=== PATIENT | female | born 1945 | race African-American/Black ===

== ENCOUNTER 2020-09-26 22:46 | Inpatient (IN) ==
[2020-09-26] MEDS ORDERED: ASPIRIN 325 MG TABLET PO STA (23:21)
[2020-09-26] MEDS ORDERED: ONDANSETRON 4 MG/2 ML VIAL IV STA (23:21)
[2020-09-26] MEDS ORDERED: SODIUM CHLORIDE 0.9% 1,000 ML IV STA (23:21)
[2020-09-26 23:28] LABS: Basophils % 0.2 % (0.0-0.8); Eosinophils % 0.1 % (0.00-10.9); Hemoglobin 12.6 GM/DL (12.0-16.0); Immature Granulocytes % 0.5 %; Immature Granulocytes Absolute 0.09 #; Lymphocytes # 0.7 10*3/uL (1.4-4.0); Lymphocytes % 3.9 % (21.3-54.2); Mean Corpuscular HGB Conc 32.3 GM/DL (32-36); Mean Corpuscular Volume 92.6 FL (87-102); Mean Platelet Volume 9.7 FL (9.6-12.0); Monocytes % 3.2 % (1.7-12.7); Neutrophils % 92.1 % (38.7-73.9); Platelet Count 312 T/CUMM (130-400); Red Blood Count 4.21 MC/CUMM (3.8-5.5); Red Cell Distribution Width 15.2 % (9.3-17.3); White Blood Count 17.5 T/CUMM (4-12)
[2020-09-26 23:48] LABS: Bilirubin,Total 0.8 MG/DL (0.2-1.0); Calcium 8.5 MG/DL (8.5-10.1); Osmolality,Calculated 278.2 MOS/KG (273-304); Potassium 3.5 MMOL/L (3.5-5.1); Total Protein 9.4 G/DL (6.4-8.2)
[2020-09-26 23:49] LABS: PT Patient Result 11.1 SECS (10.5-12.0); Partial Thromboplastin Time 24.1 SECS (23.9-33.8)
[2020-09-26 23:50] LABS: Lymphocytes 3 % (20-55); Platelet Estimate Normal; Segmented Neutrophils 96 % (50-85); Total Cells Counted 100
[2020-09-26 23:53] LABS: ABG Base Excess -1.5 MMOL/L (-2.5-2.5); ABG HCO3 20.1 MMOL/L (20-26); ABG Oxygen Saturation 98.4 % (95-100); ABG PCO2 25.4 MM HG (35-48); ABG PH 7.516 (7.35-7.45); ABG PO2 131.8 MM HG (80-95); ABG TCO2 20.9 MMOL/L (23-27)
[2020-09-27] MEDS ORDERED: ENOXAPARIN 30 MG/0.3 ML SYRINGE SUBCUT STA (00:08)
[2020-09-27] MEDS ORDERED: PIPERACILLIN/TAZOBACTAM 3,375 MG in SODIUM CHLORIDE 0.9% 100 ML IV STA (00:09)
[2020-09-27] MEDS ORDERED: VANCOMYCIN INJ 1,000 MG in SODIUM CHLORIDE 0.9% 250 ML IV STA (00:10)
[2020-09-27] MEDS ORDERED: ENOXAPARIN 60 MG/0.6 ML SYRINGE ONE (00:16)
[2020-09-27] MEDS ORDERED: SODIUM CHLORIDE 0.9% 100 ML IV ONE (00:18)
[2020-09-27] MEDS ORDERED: PIPERACILLIN/TAZOBACTAM 3,375 MG VIAL IV ONE (00:18)
[2020-09-27] MEDS ORDERED: DOCUSATE SODIUM 100 MG CAPSULE PO PRN (00:21)
[2020-09-27] MEDS ORDERED: SODIUM CHLORIDE 0.9% 1,000 ML IV SCH (00:30)
[2020-09-27] MEDS: PIPERACILLIN/TAZOBACTAM 3,375 MG in SODIUM CHLORIDE 0.9% 100 ML IV SCH ×3 (07:45→23:25)
[2020-09-27 12:10] LABS: Bacteria,Urine Occasional /HPF (Few); Bilirubin,Urine Negative (Negative); Blood, Urine Negative (Negative); Glucose,Urine (UA) Negative (Negative); Ketones,Urine Negative (Negative); Mucus,Urine Occasional /LPF (Occasional); Nitrite,Urine Negative (Negative); Protein,Urine Negative; RBC,Urine 1 /HPF (0-4); Squamous Epithelial Cell,Urine Occasional /HPF (0-10); Urine Appearance CLEAR (Clear); Urine Color Yellow (Yellow); Urine Specific Gravity 1.035 (1.001-1.035); Urine Urobilinogen < 2.0 EU/DL (0.2-1.0)
[2020-09-27] MEDS: ENOXAPARIN 60 MG/0.6 ML SYRINGE SUBCUT SCH ×2 (12:30→23:25)
[2020-09-27] MEDS ORDERED: FUROSEMIDE 40 MG/4 ML VIAL IV ONE (17:00)
[2020-09-27] MEDS: methylPREDNISolone SOD SUC 40 MG/1 ML VIAL IV SCH ×2 (17:17→23:24)
[2020-09-27] MEDS ORDERED: VANCOMYCIN INJ 1,000 MG in SODIUM CHLORIDE 0.9% 250 ML IV SCH (21:00)
[2020-09-28 04:37] LABS: Basophils % 0.1 % (0.0-0.8); Hematocrit 34.1 VOL% (35.7-47.0); Hemoglobin 10.9 GM/DL (12.0-16.0); Immature Granulocytes % 0.4 %; Immature Granulocytes Absolute 0.06 #; Lymphocytes # 0.7 10*3/uL (1.4-4.0); Lymphocytes % 5.2 % (21.3-54.2); Mean Corpuscular Volume 94.5 FL (87-102); Mean Platelet Volume 9.5 FL (9.6-12.0); Monocytes % 3.5 % (1.7-12.7); Neutrophils % 90.8 % (38.7-73.9); Platelet Count 268 T/CUMM (130-400); Red Blood Count 3.61 MC/CUMM (3.8-5.5); Red Cell Distribution Width 14.7 % (9.3-17.3); White Blood Count 13.5 T/CUMM (4-12)
[2020-09-28] MEDS: methylPREDNISolone SOD SUC 40 MG/1 ML VIAL IV SCH ×3 (04:51→20:21)
[2020-09-28 04:59] LABS: Albumin 2.5 G/DL (3.4-5.0); Bilirubin,Total 0.8 MG/DL (0.2-1.0); Calcium 8.3 MG/DL (8.5-10.1); Hypochromasia 1+; Lymphocytes 3 % (20-55); Microcytosis 1+; Osmolality,Calculated 280.5 MOS/KG (273-304); Platelet Estimate Adequate; Potassium 3.3 MMOL/L (3.5-5.1); Segmented Neutrophils 91 % (50-85); Total Cells Counted 100
[2020-09-28] MEDS: ENOXAPARIN 60 MG/0.6 ML SYRINGE SUBCUT SCH ×2 (09:16→20:21)
[2020-09-28] MEDS: PIPERACILLIN/TAZOBACTAM 3,375 MG in SODIUM CHLORIDE 0.9% 100 ML IV SCH ×2 (09:16→16:19)
[2020-09-28] MEDS: POTASSIUM CHLORIDE 20 MEQ TABLET PO PRN ×3 (10:01→18:42)
[2020-09-28] MEDS ORDERED: FUROSEMIDE 40 MG/4 ML VIAL IV ONE (10:31)
[2020-09-29] MEDS: PIPERACILLIN/TAZOBACTAM 3,375 MG in SODIUM CHLORIDE 0.9% 100 ML IV SCH ×3 (01:29→15:55)
[2020-09-29 05:48] LABS: Basophils % 0.2 % (0.0-0.8); Hematocrit 34.5 VOL% (35.7-47.0); Hemoglobin 11.6 GM/DL (12.0-16.0); Immature Granulocytes % 0.7 %; Immature Granulocytes Absolute 0.13 #; Lymphocytes # 0.6 10*3/uL (1.4-4.0); Lymphocytes % 2.9 % (21.3-54.2); Mean Corpuscular HGB Conc 33.6 GM/DL (32-36); Mean Corpuscular Volume 91.3 FL (87-102); Mean Platelet Volume 10.3 FL (9.6-12.0); Neutrophils % 92.2 % (38.7-73.9); Platelet Count 292 T/CUMM (130-400); Red Blood Count 3.78 MC/CUMM (3.8-5.5)
[2020-09-29 06:17] LABS: Hypochromasia Slight; Lymphocytes 1 % (20-55); Microcytosis Slight; Platelet Estimate Adequate; Segmented Neutrophils 96 % (50-85); Total Cells Counted 100
[2020-09-29 06:20] LABS: Albumin 2.5 G/DL (3.4-5.0); Bilirubin,Total 0.6 MG/DL (0.2-1.0); Calcium 9.1 MG/DL (8.5-10.1); Osmolality,Calculated 290.3 MOS/KG (273-304); Potassium 3.8 MMOL/L (3.5-5.1); Total Protein 8.6 G/DL (6.4-8.2)
[2020-09-29] MEDS: ENOXAPARIN 60 MG/0.6 ML SYRINGE SUBCUT SCH (08:05)
[2020-09-29] MEDS: methylPREDNISolone SOD SUC 40 MG/1 ML VIAL IV SCH ×2 (08:06→20:28)
[2020-09-29] MEDS ORDERED: FUROSEMIDE 40 MG/4 ML VIAL IV ONE (08:49)
[2020-09-29] MEDS: ACETAMINOPHEN 325 MG TABLET PO PRN (11:16)
[2020-09-29] MEDS: ONDANSETRON 4 MG/2 ML VIAL IV PRN (11:17)
[2020-09-29] MEDS: ALBUTEROL 2.5 MG/3 ML NEB RESP TX PRN ×2 (20:54)
[2020-09-30] MEDS ORDERED: methylPREDNISolone SOD SUC 125 MG/2 ML VIAL IV ONE (01:41)
[2020-09-30] MEDS ORDERED: methylPREDNISolone SOD SUC 125 MG/2 ML VIAL ONE (01:43)
[2020-09-30] MEDS: ALBUTEROL 2.5 MG/3 ML NEB RESP TX PRN ×2 (02:27→13:44)
[2020-09-30] MEDS: PIPERACILLIN/TAZOBACTAM 3,375 MG in SODIUM CHLORIDE 0.9% 100 ML IV SCH ×3 (02:30→16:49)
[2020-09-30] MEDS: ALBUTEROL/IPRATROPIUM 3 ML NEB RESP TX SCH ×5 (03:27→18:18)
[2020-09-30 03:32] LABS: Basophils % 0.1 % (0.0-0.8); Hematocrit 36.8 VOL% (35.7-47.0); Hemoglobin 11.9 GM/DL (12.0-16.0); Immature Granulocytes % 0.8 %; Immature Granulocytes Absolute 0.23 #; Lymphocytes # 0.5 10*3/uL (1.4-4.0); Lymphocytes % 1.7 % (21.3-54.2); Mean Corpuscular HGB Conc 32.3 GM/DL (32-36); Mean Corpuscular Volume 93.2 FL (87-102); Mean Platelet Volume 10.4 FL (9.6-12.0); Monocytes % 4.1 % (1.7-12.7); NRBC # 0.02 10*3/uL; Neutrophils % 93.3 % (38.7-73.9); Platelet Count 346 T/CUMM (130-400); Red Blood Count 3.95 MC/CUMM (3.8-5.5); Red Cell Distribution Width 15.5 % (9.3-17.3); White Blood Count 27.1 T/CUMM (4-12)
[2020-09-30 03:52] LABS: Albumin 2.7 G/DL (3.4-5.0); Bilirubin,Total 0.5 MG/DL (0.2-1.0); Calcium 9.1 MG/DL (8.5-10.1); Osmolality,Calculated 296.3 MOS/KG (273-304); Potassium 3.4 MMOL/L (3.5-5.1); Total Protein 8.9 G/DL (6.4-8.2)
[2020-09-30 04:12] LABS: Lymphocytes 3 % (20-55); Platelet Estimate Adequate; Segmented Neutrophils 95 % (50-85); Total Cells Counted 100
[2020-09-30 04:13] LABS: Hypochromasia 1+; Microcytosis 1+
[2020-09-30] MEDS: POTASSIUM CHLORIDE 20 MEQ TABLET PO PRN ×2 (04:38→06:06)
[2020-09-30 07:12] LABS: ABG Base Excess 1.4 MMOL/L (-2.5-2.5); ABG HCO3 25.6 MMOL/L (20-26); ABG PCO2 39.1 MM HG (35-48); ABG PH 7.434 (7.35-7.45); ABG TCO2 26.8 MMOL/L (23-27); Allen Test Positive; Pt O2 Delivery Device Other
[2020-09-30 07:13] LABS: ABG PO2 38.9 MM HG (80-95)
[2020-09-30] MEDS ORDERED: ETOMIDATE 20 MG/10 ML VIAL IV ONE ×2 (07:18→07:34)
[2020-09-30] MEDS ORDERED: SUCCINYLCHOLINE 200 MG/10 ML VIAL ONE (07:19)
[2020-09-30] MEDS ORDERED: SUCCINYLCHOLINE 200 MG/10 ML VIAL IV ONE (07:35)
[2020-09-30] MEDS ORDERED: SODIUM CHLORIDE 0.9% 500 ML IV ONE (07:37)
[2020-09-30] MEDS ORDERED: NOREPINEPHRINE 4 MG/4 ML VIAL IV ONE (07:38)
[2020-09-30] MEDS: NOREPINEPHRINE 8 MG in SODIUM CHLORIDE 0.9% 242 ML IV PRN ×2 (07:40→11:29)
[2020-09-30] MEDS ORDERED: MIDAZOLAM 2 MG/2 ML VIAL IV ONE ×2 (07:48→07:53)
[2020-09-30] MEDS ORDERED: MIDAZOLAM 2 MG/2 ML VIAL ONE (07:49)
[2020-09-30] MEDS ORDERED: fentaNYL INJ 1,250 MCG in SODIUM CHLORIDE 0.9% 225 ML IV PRN (08:03)
[2020-09-30] MEDS: MIDAZOLAM 100 MG in SODIUM CHLORIDE 0.9% 80 ML IV PRN (08:41)
[2020-09-30 08:45] LABS: ABG Base Excess -1.7 MMOL/L (-2.5-2.5); ABG HCO3 22.8 MMOL/L (20-26); ABG Oxygen Saturation 87.2 % (95-100); ABG PCO2 53.2 MM HG (35-48); ABG PH 7.291 (7.35-7.45); ABG PO2 65.9 MM HG (80-95); ABG TCO2 23.3 MMOL/L (23-27)
[2020-09-30] MEDS: methylPREDNISolone SOD SUC 40 MG/1 ML VIAL IV SCH ×3 (08:51→20:48)
[2020-09-30] MEDS: ENOXAPARIN 40 MG/0.4 ML SYRINGE SUBCUT SCH (08:51)
[2020-09-30] MEDS ORDERED: PNEUMOCOCCAL VACCINE (13 VALENT) 0.5 ML SYRINGE IM ONE (09:00)
[2020-09-30 11:34] LABS: ABG Base Excess -3.8 MMOL/L (-2.5-2.5); ABG HCO3 24.8 MMOL/L (20-26); ABG Oxygen Saturation 80.5 % (95-100); ABG PCO2 62.8 MM HG (35-48); ABG PH 7.214 (7.35-7.45); ABG PO2 59.3 MM HG (80-95); ABG TCO2 26.7 MMOL/L (23-27)
[2020-09-30 11:35] LABS: Allen Test Positive; Pt O2 Delivery Device Ventilator
[2020-09-30] MEDS ORDERED: DEXTROSE 50% 25 GM/50 ML VIAL IV PRN (11:53)
[2020-09-30] MEDS ORDERED: GLUCAGON 1 MG VIAL IM PRN (11:53)
[2020-09-30] MEDS: CISATRACURIUM 200 MG in SODIUM CHLORIDE 0.9% 180 ML IV PRN ×2 (12:30→19:16)
[2020-09-30 13:36] LABS: Antinuclear Ab, S > 12.0 U
[2020-09-30] MEDS: FUROSEMIDE 40 MG/4 ML VIAL IV SCH (13:59)
[2020-09-30] MEDS: INSULIN REGULAR 100 UNIT/ML SUBCUT SCH ×2 (14:05→18:34)
[2020-09-30] MEDS: NOREPINEPHRINE 16 MG in SODIUM CHLORIDE 0.9% 234 ML IV PRN (15:41)
[2020-09-30] MEDS: fentaNYL INJ 2,500 MCG in SODIUM CHLORIDE 0.9% 75 ML IV PRN (17:42)
[2020-09-30] MEDS: SULFAMETH/TRIMETH INJ 300 MG in DEXTROSE 5% 500 ML IV SCH (17:50)
[2020-09-30] MEDS: BUDESONIDE 0.5 MG/2 ML NEB RESP TX SCH (18:18)
[2020-10-01] MEDS: NOREPINEPHRINE 16 MG in SODIUM CHLORIDE 0.9% 234 ML IV PRN ×2 (00:02→09:12)
[2020-10-01] MEDS: MIDAZOLAM 100 MG in SODIUM CHLORIDE 0.9% 80 ML IV PRN (00:03)
[2020-10-01] MEDS: INSULIN REGULAR 100 UNIT/ML SUBCUT SCH ×4 (00:07→17:55)
[2020-10-01] MEDS: PIPERACILLIN/TAZOBACTAM 3,375 MG in SODIUM CHLORIDE 0.9% 100 ML IV SCH ×3 (00:07→17:01)
[2020-10-01] MEDS: ALBUTEROL/IPRATROPIUM 3 ML NEB RESP TX SCH ×7 (00:40→23:19)
[2020-10-01] MEDS: SULFAMETH/TRIMETH INJ 300 MG in DEXTROSE 5% 500 ML IV SCH ×2 (01:52→13:45)
[2020-10-01] MEDS: CISATRACURIUM 200 MG in SODIUM CHLORIDE 0.9% 180 ML IV PRN ×4 (01:53→23:23)
[2020-10-01] MEDS: methylPREDNISolone SOD SUC 40 MG/1 ML VIAL IV SCH ×4 (03:58→21:38)
[2020-10-01 04:17] LABS: ABG Base Excess -3.5 MMOL/L (-2.5-2.5); ABG HCO3 21.5 MMOL/L (20-26); ABG Oxygen Saturation 99.9 % (95-100); ABG PCO2 55.3 MM HG (35-48); ABG PH 7.252 (7.35-7.45); ABG TCO2 22.4 MMOL/L (23-27); Allen Test Positive; Pt O2 Delivery Device Ventilator
[2020-10-01 04:44] LABS: Basophils % 0.1 % (0.0-0.8); Hematocrit 32.4 VOL% (35.7-47.0); Hemoglobin 10.1 GM/DL (12.0-16.0); Immature Granulocytes % 1.2 %; Immature Granulocytes Absolute 0.33 #; Lymphocytes # 0.6 10*3/uL (1.4-4.0); Lymphocytes % 2.2 % (21.3-54.2); Mean Corpuscular HGB Conc 31.2 GM/DL (32-36); Mean Platelet Volume 10.3 FL (9.6-12.0); Monocytes % 7.5 % (1.7-12.7); Platelet Count 347 T/CUMM (130-400); Red Blood Count 3.34 MC/CUMM (3.8-5.5); White Blood Count 28.2 T/CUMM (4-12)
[2020-10-01 05:02] LABS: Alanine Aminotransferase 24 U/L (13-56); Albumin 2.3 G/DL (3.4-5.0); Alkaline Phosphatase 79 U/L (45-117); Aspartate Amino Transferase 14 U/L (0-37); Bilirubin,Total < 0.39 MG/DL (0.2-1.0); Blood Urea Nitrogen 53 MG/DL (7-18); Calcium 7.9 MG/DL (8.5-10.1); Carbon Dioxide 27 MMOL/L (21-32); Estimated Glom Filtration Rate 29 ML/MIN; Glucose 277 MG/DL (74-106); Osmolality,Calculated 302.4 MOS/KG (273-304); Sodium 140 MMOL/L (136-145); Total Protein 7.5 G/DL (6.4-8.2)
[2020-10-01 05:10] LABS: Anisocytosis 1+; Hypochromasia 1+; Lymphocytes 1 % (20-55); Microcytosis 1+; Segmented Neutrophils 93 % (50-85); Total Cells Counted 100
[2020-10-01 05:11] LABS: Polychromasia Slight
[2020-10-01] MEDS: BUDESONIDE 0.5 MG/2 ML NEB RESP TX SCH ×2 (07:18→20:03)
[2020-10-01] MEDS: FUROSEMIDE 40 MG/4 ML VIAL IV SCH ×2 (09:10→10:03)
[2020-10-01] MEDS: ENOXAPARIN 40 MG/0.4 ML SYRINGE SUBCUT SCH (09:11)
[2020-10-01] MEDS: INSULIN GLARGINE 100 UNIT/ML SUBCUT SCH (09:11)
[2020-10-01] MEDS: fentaNYL INJ 2,500 MCG in SODIUM CHLORIDE 0.9% 75 ML IV PRN ×2 (09:59→10:31)
[2020-10-01 12:27] LABS: ABG Base Excess -0.3 MMOL/L (-2.5-2.5); ABG HCO3 24.2 MMOL/L (20-26); ABG Oxygen Saturation 98.2 % (95-100); ABG PCO2 53.8 MM HG (35-48); ABG PH 7.304 (7.35-7.45); ABG TCO2 24.6 MMOL/L (23-27)
[2020-10-01] MEDS ORDERED: LACTATED RINGERS 500 ML IV ONE (12:40)
[2020-10-02] MEDS: INSULIN REGULAR 100 UNIT/ML SUBCUT SCH ×4 (00:40→17:44)
[2020-10-02] MEDS: PIPERACILLIN/TAZOBACTAM 3,375 MG in SODIUM CHLORIDE 0.9% 100 ML IV SCH ×3 (00:42→16:15)
[2020-10-02] MEDS: SULFAMETH/TRIMETH INJ 300 MG in DEXTROSE 5% 500 ML IV SCH ×2 (01:30→16:06)
[2020-10-02] MEDS: NOREPINEPHRINE 16 MG in SODIUM CHLORIDE 0.9% 234 ML IV PRN (01:54)
[2020-10-02] MEDS: fentaNYL INJ 2,500 MCG in SODIUM CHLORIDE 0.9% 75 ML IV PRN (03:15)
[2020-10-02] MEDS: ALBUTEROL/IPRATROPIUM 3 ML NEB RESP TX SCH ×6 (03:35→23:42)
[2020-10-02] MEDS: methylPREDNISolone SOD SUC 40 MG/1 ML VIAL IV SCH ×4 (04:50→21:08)
[2020-10-02 04:56] LABS: Basophils % 0.1 % (0.0-0.8); Hematocrit 28.5 VOL% (35.7-47.0); Hemoglobin 8.9 GM/DL (12.0-16.0); Immature Granulocytes % 1.2 %; Immature Granulocytes Absolute 0.31 #; Lymphocytes # 0.4 10*3/uL (1.4-4.0); Lymphocytes % 1.5 % (21.3-54.2); Mean Corpuscular HGB Conc 31.2 GM/DL (32-36); Mean Corpuscular Volume 95.6 FL (87-102); Mean Platelet Volume 10.3 FL (9.6-12.0); Monocytes % 5.4 % (1.7-12.7); Neutrophils % 91.8 % (38.7-73.9); Platelet Count 338 T/CUMM (130-400); Red Blood Count 2.98 MC/CUMM (3.8-5.5); Red Cell Distribution Width 14.7 % (9.3-17.3); White Blood Count 25.5 T/CUMM (4-12)
[2020-10-02 04:59] LABS: ABG Base Excess 0.8 MMOL/L (-2.5-2.5); ABG HCO3 25.2 MMOL/L (20-26); ABG Oxygen Saturation 99.4 % (95-100); ABG PCO2 45.7 MM HG (35-48); ABG PH 7.369 (7.35-7.45); ABG TCO2 24.3 MMOL/L (23-27)
[2020-10-02 05:05] LABS: Calcium 8.4 MG/DL (8.5-10.1); Osmolality,Calculated 295.8 MOS/KG (273-304); Potassium 3.9 MMOL/L (3.5-5.1)
[2020-10-02 06:05] LABS: Band Neutrophils 3 % (0-10); Lymphocytes 2 % (20-55); Platelet Estimate Normal; Segmented Neutrophils 90 % (50-85); Total Cells Counted 100
[2020-10-02 06:06] LABS: Anisocytosis 1+; Basophilic Stippling Slight; Macrocytosis Slight
[2020-10-02] MEDS: BUDESONIDE 0.5 MG/2 ML NEB RESP TX SCH ×2 (07:21→19:51)
[2020-10-02] MEDS: ENOXAPARIN 30 MG/0.3 ML SYRINGE SUBCUT SCH (09:00)
[2020-10-02] MEDS: INSULIN GLARGINE 100 UNIT/ML SUBCUT SCH (09:01)
[2020-10-02] MEDS: CISATRACURIUM 200 MG in SODIUM CHLORIDE 0.9% 180 ML IV PRN (09:38)
[2020-10-02] MEDS ORDERED: INSULIN GLARGINE 100 UNIT/ML SUBCUT ONE (09:42)
[2020-10-02] MEDS: MIDAZOLAM 100 MG in SODIUM CHLORIDE 0.9% 80 ML IV PRN (20:03)
[2020-10-03] MEDS: INSULIN REGULAR 100 UNIT/ML SUBCUT SCH ×4 (00:08→18:26)
[2020-10-03] MEDS: PIPERACILLIN/TAZOBACTAM 3,375 MG in SODIUM CHLORIDE 0.9% 100 ML IV SCH ×3 (00:15→17:25)
[2020-10-03] MEDS: SULFAMETH/TRIMETH INJ 300 MG in DEXTROSE 5% 500 ML IV SCH ×2 (01:14→12:25)
[2020-10-03] MEDS: methylPREDNISolone SOD SUC 40 MG/1 ML VIAL IV SCH ×4 (03:12→21:25)
[2020-10-03] MEDS: ALBUTEROL/IPRATROPIUM 3 ML NEB RESP TX SCH ×6 (03:41→23:49)
[2020-10-03 04:32] LABS: ABG Base Excess 1.8 MMOL/L (-2.5-2.5); ABG Oxygen Saturation 94.8 % (95-100); ABG PCO2 42.1 MM HG (35-48); ABG PH 7.409 (7.35-7.45); ABG PO2 75.7 MM HG (80-95); ABG TCO2 24.2 MMOL/L (23-27); Allen Test Positive; Pt O2 Delivery Device Ventilator
[2020-10-03 04:47] LABS: Basophils % 0.1 % (0.0-0.8); Eosinophils # 0.1 10*3/uL (0.0-0.87); Eosinophils % 0.3 % (0.00-10.9); Hematocrit 26.7 VOL% (35.7-47.0); Hemoglobin 8.6 GM/DL (12.0-16.0); Immature Granulocytes % 1.4 %; Lymphocytes # 0.5 10*3/uL (1.4-4.0); Lymphocytes % 2.3 % (21.3-54.2); Mean Corpuscular HGB Conc 32.2 GM/DL (32-36); Mean Corpuscular Volume 93.4 FL (87-102); Mean Platelet Volume 10.6 FL (9.6-12.0); Monocytes % 4.2 % (1.7-12.7); NRBC # 0.02 10*3/uL; Neutrophils % 91.7 % (38.7-73.9); Platelet Count 317 T/CUMM (130-400); Red Blood Count 2.86 MC/CUMM (3.8-5.5); Red Cell Distribution Width 15.1 % (9.3-17.3)
[2020-10-03 05:29] LABS: Calcium 8.6 MG/DL (8.5-10.1); Osmolality,Calculated 287.2 MOS/KG (273-304); Potassium 4.5 MMOL/L (3.5-5.1)
[2020-10-03] MEDS: BUDESONIDE 0.5 MG/2 ML NEB RESP TX SCH ×2 (07:22→19:56)
[2020-10-03 07:36] LABS: Lymphocytes 2 % (20-55); Microcytosis Slight; Platelet Estimate Increased; Polychromasia Slight; Segmented Neutrophils 97 % (50-85); Total Cells Counted 100
[2020-10-03] MEDS: ENOXAPARIN 30 MG/0.3 ML SYRINGE SUBCUT SCH (09:53)
[2020-10-03] MEDS: INSULIN GLARGINE 100 UNIT/ML SUBCUT SCH (09:54)
[2020-10-03] MEDS: fentaNYL INJ 2,500 MCG in SODIUM CHLORIDE 0.9% 75 ML IV PRN (14:55)
[2020-10-04] MEDS: PIPERACILLIN/TAZOBACTAM 3,375 MG in SODIUM CHLORIDE 0.9% 100 ML IV SCH ×3 (00:10→16:50)
[2020-10-04] MEDS: INSULIN REGULAR 100 UNIT/ML SUBCUT SCH ×4 (00:15→17:22)
[2020-10-04] MEDS: SULFAMETH/TRIMETH INJ 300 MG in DEXTROSE 5% 500 ML IV SCH ×2 (01:13→13:27)
[2020-10-04] MEDS: methylPREDNISolone SOD SUC 40 MG/1 ML VIAL IV SCH ×4 (03:08→20:48)
[2020-10-04] MEDS: ALBUTEROL/IPRATROPIUM 3 ML NEB RESP TX SCH ×5 (04:37→18:25)
[2020-10-04 04:42] LABS: ABG Base Excess 5.4 MMOL/L (-2.5-2.5); ABG HCO3 28.4 MMOL/L (20-26); ABG PCO2 35.2 MM HG (35-48); ABG PH 7.525 (7.35-7.45); ABG PO2 79.8 MM HG (80-95); ABG TCO2 29.5 MMOL/L (23-27); Allen Test Positive; Pt O2 Delivery Device Ventilator
[2020-10-04 04:44] LABS: Basophils % 0.1 % (0.0-0.8); Eosinophils # 0.1 10*3/uL (0.0-0.87); Eosinophils % 0.8 % (0.00-10.9); Hematocrit 25.4 VOL% (35.7-47.0); Hemoglobin 8.1 GM/DL (12.0-16.0); Immature Granulocytes Absolute 0.55 #; Lymphocytes # 0.5 10*3/uL (1.4-4.0); Lymphocytes % 2.9 % (21.3-54.2); Mean Corpuscular HGB Conc 31.9 GM/DL (32-36); Mean Corpuscular Volume 94.1 FL (87-102); Mean Platelet Volume 10.4 FL (9.6-12.0); NRBC # 0.03 10*3/uL; Neutrophils % 88.2 % (38.7-73.9); Platelet Count 322 T/CUMM (130-400); Red Cell Distribution Width 15.6 % (9.3-17.3); White Blood Count 18.1 T/CUMM (4-12)
[2020-10-04 05:05] LABS: Eosinophils 1 % (0-10); Lymphocytes 6 % (20-55); Segmented Neutrophils 89 % (50-85); Total Cells Counted 100
[2020-10-04 05:06] LABS: Hypochromasia 1+; Microcytosis 1+
[2020-10-04 05:07] LABS: Calcium 8.2 MG/DL (8.5-10.1); Osmolality,Calculated 282.1 MOS/KG (273-304); Potassium 4.7 MMOL/L (3.5-5.1)
[2020-10-04] MEDS: MIDAZOLAM 100 MG in SODIUM CHLORIDE 0.9% 80 ML IV PRN (06:47)
[2020-10-04] MEDS: BUDESONIDE 0.5 MG/2 ML NEB RESP TX SCH ×2 (07:34→18:25)
[2020-10-04 07:56] LABS: Pneumocystis jiroveci Result Negative (Negative); Pneumocystis jiroveci Source SPUTUM
[2020-10-04] MEDS: INSULIN GLARGINE 100 UNIT/ML SUBCUT SCH (09:30)
[2020-10-04] MEDS: ENOXAPARIN 30 MG/0.3 ML SYRINGE SUBCUT SCH (09:51)
[2020-10-04] MEDS: METOCLOPRAMIDE 10 MG/2 ML VIAL IV SCH (17:22)
[2020-10-04] MEDS: fentaNYL INJ 2,500 MCG in SODIUM CHLORIDE 0.9% 75 ML IV PRN (23:40)
[2020-10-05] MEDS: METOCLOPRAMIDE 10 MG/2 ML VIAL IV SCH ×4 (00:09→18:40)
[2020-10-05] MEDS: INSULIN REGULAR 100 UNIT/ML SUBCUT SCH ×4 (00:09→18:35)
[2020-10-05] MEDS: ALBUTEROL/IPRATROPIUM 3 ML NEB RESP TX SCH ×5 (00:34→18:58)
[2020-10-05] MEDS: SULFAMETH/TRIMETH INJ 300 MG in DEXTROSE 5% 500 ML IV SCH (00:49)
[2020-10-05 04:14] LABS: ABG Base Excess 4.5 MMOL/L (-2.5-2.5); ABG HCO3 28.4 MMOL/L (20-26); ABG Oxygen Saturation 98.1 % (95-100); ABG PCO2 38.8 MM HG (35-48); ABG PH 7.471 (7.35-7.45); ABG TCO2 25.6 MMOL/L (23-27)
[2020-10-05] MEDS: methylPREDNISolone SOD SUC 40 MG/1 ML VIAL IV SCH ×4 (04:29→20:54)
[2020-10-05 04:41] LABS: Basophils % 0.1 % (0.0-0.8); Eosinophils # 0.2 10*3/uL (0.0-0.87); Eosinophils % 0.9 % (0.00-10.9); Hematocrit 29.6 VOL% (35.7-47.0); Hemoglobin 9.7 GM/DL (12.0-16.0); Immature Granulocytes % 4.5 %; Immature Granulocytes Absolute 0.97 #; Lymphocytes # 0.7 10*3/uL (1.4-4.0); Lymphocytes % 3.4 % (21.3-54.2); Mean Corpuscular HGB Conc 32.8 GM/DL (32-36); Mean Corpuscular Volume 91.9 FL (87-102); Mean Platelet Volume 10.5 FL (9.6-12.0); Monocytes % 6.9 % (1.7-12.7); NRBC # 0.05 10*3/uL; Neutrophils % 84.2 % (38.7-73.9); Platelet Count 368 T/CUMM (130-400); Red Blood Count 3.22 MC/CUMM (3.8-5.5); Red Cell Distribution Width 15.6 % (9.3-17.3); White Blood Count 21.5 T/CUMM (4-12)
[2020-10-05 04:54] LABS: Calcium 8.6 MG/DL (8.5-10.1); Osmolality,Calculated 279.4 MOS/KG (273-304); Potassium 4.4 MMOL/L (3.5-5.1)
[2020-10-05 05:01] LABS: Band Neutrophils 1 % (0-10); Eosinophils 1 % (0-10); Hypochromasia 1+; Lymphocytes 4 % (20-55); Metamyelocytes 1 %; Segmented Neutrophils 86 % (50-85); Total Cells Counted 100
[2020-10-05 05:02] LABS: Microcytosis 1+; Platelet Estimate Normal; Polychromasia Slight
[2020-10-05] MEDS: BUDESONIDE 0.5 MG/2 ML NEB RESP TX SCH ×2 (06:57→19:00)
[2020-10-05] MEDS: INSULIN GLARGINE 100 UNIT/ML SUBCUT SCH (08:53)
[2020-10-05] MEDS: ENOXAPARIN 30 MG/0.3 ML SYRINGE SUBCUT SCH (08:54)
[2020-10-05] MEDS ORDERED: cefTRIAXone 1,000 MG in SODIUM CHLORIDE 0.9% 100 ML IV SCH (09:00)
[2020-10-05] MEDS ORDERED: MORPHINE 4 MG/1 ML VIAL IV PRN (11:20)
[2020-10-05] MEDS: amLODIPine 10 MG TABLET PO SCH (11:40)
[2020-10-05] MEDS: hydrALAZINE 20 MG/1 ML VIAL IV PRN (13:54)
[2020-10-05] MEDS: ACETAMINOPHEN 325 MG TABLET PO PRN (16:47)
[2020-10-05] MEDS: MIDAZOLAM 100 MG in SODIUM CHLORIDE 0.9% 80 ML IV PRN (19:45)
[2020-10-05] MEDS: fentaNYL INJ 2,500 MCG in SODIUM CHLORIDE 0.9% 75 ML IV PRN (22:29)
[2020-10-06] MEDS: METOCLOPRAMIDE 10 MG/2 ML VIAL IV SCH ×4 (00:03→17:43)
[2020-10-06] MEDS: ALBUTEROL/IPRATROPIUM 3 ML NEB RESP TX SCH ×8 (01:55→23:52)
[2020-10-06 04:06] LABS: Basophils % 0.1 % (0.0-0.8); Eosinophils # 0.1 10*3/uL (0.0-0.87); Eosinophils % 0.4 % (0.00-10.9); Hematocrit 27.8 VOL% (35.7-47.0); Hemoglobin 8.8 GM/DL (12.0-16.0); Immature Granulocytes % 4.1 %; Immature Granulocytes Absolute 1.07 #; Lymphocytes # 0.8 10*3/uL (1.4-4.0); Lymphocytes % 3.1 % (21.3-54.2); Mean Corpuscular HGB Conc 31.7 GM/DL (32-36); Mean Corpuscular Volume 93.6 FL (87-102); Mean Platelet Volume 10.4 FL (9.6-12.0); Monocytes % 6.6 % (1.7-12.7); NRBC # 0.09 10*3/uL; Neutrophils % 85.7 % (38.7-73.9); Platelet Count 350 T/CUMM (130-400); Red Blood Count 2.97 MC/CUMM (3.8-5.5); White Blood Count 25.9 T/CUMM (4-12)
[2020-10-06] MEDS: methylPREDNISolone SOD SUC 40 MG/1 ML VIAL IV SCH ×4 (04:08→21:09)
[2020-10-06 04:23] LABS: Lymphocytes 4 % (20-55); Nucleated Red Blood Cells 1 (0-5); Segmented Neutrophils 89 % (50-85); Total Cells Counted 100
[2020-10-06 04:24] LABS: Anisocytosis 1+; Hypochromasia Slight; Microcytosis 1+; Platelet Estimate Normal
[2020-10-06 04:26] LABS: Alanine Aminotransferase 21 U/L (13-56); Albumin 2.2 G/DL (3.4-5.0); Alkaline Phosphatase 66 U/L (45-117); Aspartate Amino Transferase 16 U/L (0-37); Bilirubin,Total < 0.39 MG/DL (0.2-1.0); Blood Urea Nitrogen 42 MG/DL (7-18); Calcium 8.6 MG/DL (8.5-10.1); Carbon Dioxide 33 MMOL/L (21-32); Estimated Glom Filtration Rate 55 ML/MIN; Glucose 159 MG/DL (74-106); Osmolality,Calculated 279.4 MOS/KG (273-304); Potassium 5.4 MMOL/L (3.5-5.1); Sodium 133 MMOL/L (136-145); Total Protein 6.1 G/DL (6.4-8.2)
[2020-10-06 04:49] LABS: ABG Base Excess 6.4 MMOL/L (-2.5-2.5); ABG HCO3 30.2 MMOL/L (20-26); ABG Oxygen Saturation 98.4 % (95-100); ABG PCO2 46.1 MM HG (35-48); ABG PH 7.441 (7.35-7.45); ABG TCO2 28.5 MMOL/L (23-27)
[2020-10-06] MEDS: INSULIN REGULAR 100 UNIT/ML SUBCUT SCH ×4 (05:55→17:43)
[2020-10-06] MEDS: BUDESONIDE 0.5 MG/2 ML NEB RESP TX SCH ×2 (07:21→19:20)
[2020-10-06 09:01] LABS: Pneumocystis jiroveci Result Negative (Negative); Pneumocystis jiroveci Source BRONCH WASH
[2020-10-06] MEDS: INSULIN GLARGINE 100 UNIT/ML SUBCUT SCH (10:00)
[2020-10-06] MEDS: ENOXAPARIN 30 MG/0.3 ML SYRINGE SUBCUT SCH (10:01)
[2020-10-06] MEDS: CEFEPIME 1,000 MG in SODIUM CHLORIDE 0.9% 100 ML IV SCH ×3 (10:01→21:11)
[2020-10-06] MEDS: amLODIPine 10 MG TABLET PO SCH (10:01)
[2020-10-06] MEDS: fentaNYL INJ 2,500 MCG in SODIUM CHLORIDE 0.9% 75 ML IV PRN (19:43)
[2020-10-07] MEDS: MIDAZOLAM 100 MG in SODIUM CHLORIDE 0.9% 80 ML IV PRN (00:05)
[2020-10-07] MEDS: INSULIN REGULAR 100 UNIT/ML SUBCUT SCH ×4 (00:35→17:40)
[2020-10-07] MEDS: METOCLOPRAMIDE 10 MG/2 ML VIAL IV SCH ×4 (00:36→17:41)
[2020-10-07] MEDS: ALBUTEROL/IPRATROPIUM 3 ML NEB RESP TX SCH ×6 (02:50→23:40)
[2020-10-07] MEDS: methylPREDNISolone SOD SUC 40 MG/1 ML VIAL IV SCH ×4 (03:01→21:08)
[2020-10-07] MEDS: CEFEPIME 1,000 MG in SODIUM CHLORIDE 0.9% 100 ML IV SCH ×4 (03:04→21:10)
[2020-10-07 04:25] LABS: Basophils # 0.1 10*3/uL (0.0-0.2); Basophils % 0.2 % (0.0-0.8); Eosinophils % 0.1 % (0.00-10.9); Hematocrit 27.4 VOL% (35.7-47.0); Hemoglobin 8.8 GM/DL (12.0-16.0); Immature Granulocytes % 3.1 %; Immature Granulocytes Absolute 0.82 #; Lymphocytes # 1.2 10*3/uL (1.4-4.0); Lymphocytes % 4.5 % (21.3-54.2); Mean Corpuscular HGB Conc 32.1 GM/DL (32-36); Mean Corpuscular Volume 92.3 FL (87-102); Mean Platelet Volume 10.4 FL (9.6-12.0); Monocytes % 5.8 % (1.7-12.7); NRBC # 0.04 10*3/uL; Neutrophils % 86.3 % (38.7-73.9); Platelet Count 340 T/CUMM (130-400); Red Blood Count 2.97 MC/CUMM (3.8-5.5); Red Cell Distribution Width 15.8 % (9.3-17.3); White Blood Count 26.1 T/CUMM (4-12)
[2020-10-07 04:33] LABS: ABG Base Excess 5.3 MMOL/L (-2.5-2.5); ABG HCO3 30.3 MMOL/L (20-26); ABG Oxygen Saturation 97.7 % (95-100); ABG PCO2 47.4 MM HG (35-48); ABG PH 7.424 (7.35-7.45); ABG PO2 112.8 MM HG (80-95); ABG TCO2 31.8 MMOL/L (23-27)
[2020-10-07 04:42] LABS: Albumin 2.2 G/DL (3.4-5.0); Bilirubin,Total 0.4 MG/DL (0.2-1.0); Calcium 8.4 MG/DL (8.5-10.1); Potassium 5.1 MMOL/L (3.5-5.1); Total Protein 5.9 G/DL (6.4-8.2)
[2020-10-07 04:50] LABS: Hypochromasia 1+; Lymphocytes 7 % (20-55); Microcytosis 1+; Nucleated Red Blood Cells 1 (0-5); Platelet Estimate Adequate; Segmented Neutrophils 89 % (50-85); Total Cells Counted 100
[2020-10-07] MEDS: BUDESONIDE 0.5 MG/2 ML NEB RESP TX SCH ×2 (07:10→20:03)
[2020-10-07] MEDS: MULTIVITAMIN LIQUID (CENTRUM) 60 ML BOTTLE PO SCH (08:50)
[2020-10-07] MEDS: amLODIPine 10 MG TABLET PO SCH (08:51)
[2020-10-07] MEDS: ENOXAPARIN 30 MG/0.3 ML SYRINGE SUBCUT SCH (08:51)
[2020-10-07] MEDS: INSULIN GLARGINE 100 UNIT/ML SUBCUT SCH (08:51)
[2020-10-07] MEDS ORDERED: FUROSEMIDE 20 MG/2 ML VIAL IV ONE (09:21)
[2020-10-07 11:25] LABS: Anti SS-A Antibodies > 100 EU/ML
[2020-10-07] MEDS: fentaNYL INJ 2,500 MCG in SODIUM CHLORIDE 0.9% 75 ML IV PRN (18:56)
[2020-10-08] MEDS: INSULIN REGULAR 100 UNIT/ML SUBCUT SCH ×4 (00:14→18:16)
[2020-10-08] MEDS: METOCLOPRAMIDE 10 MG/2 ML VIAL IV SCH ×4 (00:15→18:33)
[2020-10-08] MEDS: ALBUTEROL/IPRATROPIUM 3 ML NEB RESP TX SCH ×5 (03:04→19:43)
[2020-10-08] MEDS: methylPREDNISolone SOD SUC 40 MG/1 ML VIAL IV SCH ×4 (03:05→21:41)
[2020-10-08] MEDS: CEFEPIME 1,000 MG in SODIUM CHLORIDE 0.9% 100 ML IV SCH ×4 (03:07→21:41)
[2020-10-08 04:34] LABS: Basophils # 0.1 10*3/uL (0.0-0.2); Basophils % 0.2 % (0.0-0.8); Hemoglobin 9.3 GM/DL (12.0-16.0); Immature Granulocytes % 3.5 %; Immature Granulocytes Absolute 1.06 #; Lymphocytes # 1.7 10*3/uL (1.4-4.0); Lymphocytes % 5.7 % (21.3-54.2); Mean Corpuscular HGB Conc 32.1 GM/DL (32-36); Mean Corpuscular Volume 93.5 FL (87-102); Mean Platelet Volume 10.2 FL (9.6-12.0); Monocytes % 6.2 % (1.7-12.7); Neutrophils % 84.4 % (38.7-73.9); Platelet Count 382 T/CUMM (130-400); Red Cell Distribution Width 15.7 % (9.3-17.3); White Blood Count 30.3 T/CUMM (4-12)
[2020-10-08 04:51] LABS: Albumin 2.3 G/DL (3.4-5.0); Bilirubin,Total 0.4 MG/DL (0.2-1.0); Calcium 8.6 MG/DL (8.5-10.1); Lymphocytes 6 % (20-55); Osmolality,Calculated 290.8 MOS/KG (273-304); Potassium 4.7 MMOL/L (3.5-5.1); Segmented Neutrophils 91 % (50-85); Total Cells Counted 100; Total Protein 6.2 G/DL (6.4-8.2)
[2020-10-08 04:52] LABS: Hypochromasia 1+; Microcytosis 1+; Platelet Estimate Adequate
[2020-10-08] MEDS: MIDAZOLAM 100 MG in SODIUM CHLORIDE 0.9% 80 ML IV PRN (05:05)
[2020-10-08 05:07] LABS: Allen Test Positive; Pt O2 Delivery Device Ventilator
[2020-10-08 05:13] LABS: ABG Base Excess 7.5 MMOL/L (-2.5-2.5); ABG HCO3 32.1 MMOL/L (20-26); ABG Oxygen Saturation 97.7 % (95-100); ABG PCO2 45.7 MM HG (35-48); ABG PH 7.465 (7.35-7.45); ABG PO2 112.9 MM HG (80-95); ABG TCO2 33.5 MMOL/L (23-27)
[2020-10-08] MEDS: BUDESONIDE 0.5 MG/2 ML NEB RESP TX SCH ×2 (06:59→19:43)
[2020-10-08] MEDS: INSULIN GLARGINE 100 UNIT/ML SUBCUT SCH (08:40)
[2020-10-08] MEDS: ENOXAPARIN 30 MG/0.3 ML SYRINGE SUBCUT SCH (08:41)
[2020-10-08] MEDS: amLODIPine 10 MG TABLET PO SCH (08:41)
[2020-10-08] MEDS: MULTIVITAMIN LIQUID (CENTRUM) 60 ML BOTTLE PO SCH (08:44)
[2020-10-08] MEDS ORDERED: FUROSEMIDE 40 MG/4 ML VIAL IV ONE (09:40)
[2020-10-08] MEDS: LEVOFLOXACIN INJ 750 MG/150 ML PREMIX IV SCH (10:45)
[2020-10-08 14:37] LABS: Bordetella pertussis PCR Negative; Chlamydophila pneumo PCR Negative; Coronavirus Type 229E Negative; Coronavirus Type HKU1 Negative; Coronavirus Type NL63 Negative; Coronavirus Type OC43 Negative; Human Enterovirus/Rhinovirus Negative; Human Metapneumovirus Negative; Influenza B PCR Negative; Influenza Virus Type A Negative; Mycoplasma pneumonia PCR Negative; Parainfluenza Virus 1 Negative; Parainfluenza Virus 2 Negative; Parainfluenza Virus 3 Negative; Parainfluenza Virus 4 Negative
[2020-10-08] MEDS: fentaNYL INJ 2,500 MCG in SODIUM CHLORIDE 0.9% 75 ML IV PRN (18:34)
[2020-10-09] MEDS: INSULIN REGULAR 100 UNIT/ML SUBCUT SCH ×4 (00:30→17:47)
[2020-10-09] MEDS: METOCLOPRAMIDE 10 MG/2 ML VIAL IV SCH ×4 (00:30→18:05)
[2020-10-09] MEDS: ALBUTEROL/IPRATROPIUM 3 ML NEB RESP TX SCH ×6 (00:52→18:02)
[2020-10-09] MEDS: CEFEPIME 1,000 MG in SODIUM CHLORIDE 0.9% 100 ML IV SCH ×4 (03:18→21:00)
[2020-10-09] MEDS: methylPREDNISolone SOD SUC 40 MG/1 ML VIAL IV SCH ×4 (03:18→21:00)
[2020-10-09 04:17] LABS: ABG Base Excess 8.3 MMOL/L (-2.5-2.5); ABG HCO3 32.1 MMOL/L (20-26); ABG Oxygen Saturation 99.1 % (95-100); ABG PCO2 47.1 MM HG (35-48); ABG PH 7.458 (7.35-7.45); ABG TCO2 30.3 MMOL/L (23-27)
[2020-10-09 04:42] LABS: Basophils # 0.1 10*3/uL (0.0-0.2); Basophils % 0.2 % (0.0-0.8); Hematocrit 29.1 VOL% (35.7-47.0); Hemoglobin 9.9 GM/DL (12.0-16.0); Immature Granulocytes % 2.8 %; Immature Granulocytes Absolute 0.85 #; Lymphocytes % 3.4 % (21.3-54.2); Mean Corpuscular Volume 91.5 FL (87-102); Mean Platelet Volume 10.5 FL (9.6-12.0); Monocytes % 7.3 % (1.7-12.7); NRBC # 0.02 10*3/uL; Neutrophils % 86.3 % (38.7-73.9); Platelet Count 386 T/CUMM (130-400); Red Blood Count 3.18 MC/CUMM (3.8-5.5); Red Cell Distribution Width 15.6 % (9.3-17.3); White Blood Count 29.9 T/CUMM (4-12)
[2020-10-09 05:01] LABS: Albumin 2.3 G/DL (3.4-5.0); Bilirubin,Total 0.6 MG/DL (0.2-1.0); Calcium 8.9 MG/DL (8.5-10.1); Osmolality,Calculated 291.7 MOS/KG (273-304); Potassium 4.2 MMOL/L (3.5-5.1); Total Protein 6.4 G/DL (6.4-8.2)
[2020-10-09 06:55] LABS: Lymphocytes 6 % (20-55); Segmented Neutrophils 87 % (50-85); Total Cells Counted 100
[2020-10-09 06:56] LABS: Platelet Estimate Normal
[2020-10-09] MEDS: BUDESONIDE 0.5 MG/2 ML NEB RESP TX SCH ×2 (07:02→18:02)
[2020-10-09] MEDS: INSULIN GLARGINE 100 UNIT/ML SUBCUT SCH (09:05)
[2020-10-09] MEDS: MULTIVITAMIN LIQUID (CENTRUM) 60 ML BOTTLE PO SCH (09:05)
[2020-10-09] MEDS: amLODIPine 10 MG TABLET PO SCH (09:05)
[2020-10-09] MEDS: ENOXAPARIN 40 MG/0.4 ML SYRINGE SUBCUT SCH (09:05)
[2020-10-09] MEDS: LEVOFLOXACIN INJ 750 MG/150 ML PREMIX IV SCH (09:28)
[2020-10-09] MEDS: ONDANSETRON 4 MG/2 ML VIAL IV PRN (23:45)
[2020-10-10] MEDS: INSULIN REGULAR 100 UNIT/ML SUBCUT SCH ×4 (00:26→18:26)
[2020-10-10] MEDS: METOCLOPRAMIDE 10 MG/2 ML VIAL IV SCH ×5 (00:29→23:57)
[2020-10-10] MEDS: ALBUTEROL/IPRATROPIUM 3 ML NEB RESP TX SCH ×7 (01:05→23:22)
[2020-10-10] MEDS: methylPREDNISolone SOD SUC 40 MG/1 ML VIAL IV SCH ×4 (03:14→23:57)
[2020-10-10] MEDS: CEFEPIME 1,000 MG in SODIUM CHLORIDE 0.9% 100 ML IV SCH ×4 (03:14→20:27)
[2020-10-10 04:27] LABS: ABG Base Excess 7.9 MMOL/L (-2.5-2.5); ABG HCO3 31.7 MMOL/L (20-26); ABG Oxygen Saturation 95.5 % (95-100); ABG PCO2 43.1 MM HG (35-48); ABG PH 7.483 (7.35-7.45); ABG PO2 74.9 MM HG (80-95); ABG TCO2 28.9 MMOL/L (23-27)
[2020-10-10 05:03] LABS: Basophils # 0.1 10*3/uL (0.0-0.2); Basophils % 0.2 % (0.0-0.8); Hematocrit 32.7 VOL% (35.7-47.0); Hemoglobin 10.5 GM/DL (12.0-16.0); Immature Granulocytes % 1.9 %; Immature Granulocytes Absolute 0.55 #; Lymphocytes # 0.9 10*3/uL (1.4-4.0); Mean Corpuscular HGB Conc 32.1 GM/DL (32-36); Mean Corpuscular Volume 92.6 FL (87-102); Mean Platelet Volume 10.6 FL (9.6-12.0); Monocytes % 10.2 % (1.7-12.7); Neutrophils % 84.7 % (38.7-73.9); Platelet Count 420 T/CUMM (130-400); Red Blood Count 3.53 MC/CUMM (3.8-5.5); Red Cell Distribution Width 15.9 % (9.3-17.3); White Blood Count 28.6 T/CUMM (4-12)
[2020-10-10 05:22] LABS: Albumin 2.5 G/DL (3.4-5.0); Bilirubin,Total 0.8 MG/DL (0.2-1.0); Calcium 9.1 MG/DL (8.5-10.1); Osmolality,Calculated 290.4 MOS/KG (273-304); Potassium 3.9 MMOL/L (3.5-5.1); Total Protein 6.5 G/DL (6.4-8.2)
[2020-10-10 05:59] LABS: Band Neutrophils 1 % (0-10); Lymphocytes 4 % (20-55); Platelet Estimate Increased; Segmented Neutrophils 91 % (50-85); Total Cells Counted 100
[2020-10-10] MEDS: BUDESONIDE 0.5 MG/2 ML NEB RESP TX SCH ×2 (07:12→19:29)
[2020-10-10] MEDS: ACETAMINOPHEN 325 MG TABLET PO PRN (09:30)
[2020-10-10] MEDS: INSULIN GLARGINE 100 UNIT/ML SUBCUT SCH (09:30)
[2020-10-10] MEDS: MULTIVITAMIN LIQUID (CENTRUM) 60 ML BOTTLE PO SCH (09:30)
[2020-10-10] MEDS: amLODIPine 10 MG TABLET PO SCH (09:31)
[2020-10-10] MEDS: ENOXAPARIN 40 MG/0.4 ML SYRINGE SUBCUT SCH (09:31)
[2020-10-10] MEDS: LEVOFLOXACIN INJ 750 MG/150 ML PREMIX IV SCH (09:38)
[2020-10-10] MEDS: ONDANSETRON 4 MG/2 ML VIAL IV PRN (12:35)
[2020-10-10 13:14] LABS: ABG HCO3 31.7 MMOL/L (20-26); ABG Oxygen Saturation 96.3 % (95-100); ABG PCO2 39.3 MM HG (35-48); ABG PH 7.513 (7.35-7.45); ABG PO2 77.2 MM HG (80-95); ABG TCO2 28.1 MMOL/L (23-27); Allen Test Positive; Pt O2 Delivery Device Venturi Mask
[2020-10-10] MEDS ORDERED: PROMETHAZINE 25 MG TABLET PO ONE (14:11)
[2020-10-11] MEDS: INSULIN REGULAR 100 UNIT/ML SUBCUT SCH ×4 (00:02→18:14)
[2020-10-11 03:29] LABS: ABG Base Excess 6.4 MMOL/L (-2.5-2.5); ABG HCO3 29.5 MMOL/L (20-26); ABG Oxygen Saturation 94.1 % (95-100); ABG PO2 69.6 MM HG (80-95); ABG TCO2 30.7 MMOL/L (23-27)
[2020-10-11] MEDS: CEFEPIME 1,000 MG in SODIUM CHLORIDE 0.9% 100 ML IV SCH ×4 (03:33→21:11)
[2020-10-11 03:52] LABS: Basophils % 0.1 % (0.0-0.8); Hematocrit 34.6 VOL% (35.7-47.0); Hemoglobin 11.1 GM/DL (12.0-16.0); Immature Granulocytes % 1.8 %; Immature Granulocytes Absolute 0.52 #; Lymphocytes # 0.7 10*3/uL (1.4-4.0); Lymphocytes % 2.5 % (21.3-54.2); Mean Corpuscular HGB Conc 32.1 GM/DL (32-36); Mean Corpuscular Volume 93.8 FL (87-102); Mean Platelet Volume 10.3 FL (9.6-12.0); Monocytes % 6.3 % (1.7-12.7); Neutrophils % 89.3 % (38.7-73.9); Platelet Count 388 T/CUMM (130-400); Red Blood Count 3.69 MC/CUMM (3.8-5.5); White Blood Count 28.1 T/CUMM (4-12)
[2020-10-11] MEDS: ALBUTEROL/IPRATROPIUM 3 ML NEB RESP TX SCH ×5 (04:00→19:17)
[2020-10-11 04:11] LABS: Calcium 8.9 MG/DL (8.5-10.1); Osmolality,Calculated 283.5 MOS/KG (273-304); Potassium 3.5 MMOL/L (3.5-5.1)
[2020-10-11 04:16] LABS: Hypochromasia 1+; Lymphocytes 4 % (20-55); Microcytosis 1+; Platelet Estimate Adequate; Segmented Neutrophils 93 % (50-85); Total Cells Counted 100
[2020-10-11] MEDS: METOCLOPRAMIDE 10 MG/2 ML VIAL IV SCH ×3 (06:24→18:25)
[2020-10-11] MEDS: BUDESONIDE 0.5 MG/2 ML NEB RESP TX SCH ×2 (07:14→19:17)
[2020-10-11] MEDS: ENOXAPARIN 40 MG/0.4 ML SYRINGE SUBCUT SCH (09:27)
[2020-10-11] MEDS: amLODIPine 10 MG TABLET PO SCH (09:27)
[2020-10-11] MEDS: INSULIN GLARGINE 100 UNIT/ML SUBCUT SCH (09:28)
[2020-10-11] MEDS: MULTIVITAMIN LIQUID (CENTRUM) 60 ML BOTTLE PO SCH (09:28)
[2020-10-11] MEDS: methylPREDNISolone SOD SUC 40 MG/1 ML VIAL IV SCH ×2 (11:20→22:35)
[2020-10-11] MEDS: LEVOFLOXACIN INJ 750 MG/150 ML PREMIX IV SCH (11:20)
[2020-10-12] MEDS: INSULIN REGULAR 100 UNIT/ML SUBCUT SCH ×5 (00:17→23:37)
[2020-10-12] MEDS: METOCLOPRAMIDE 10 MG/2 ML VIAL IV SCH ×5 (00:19→23:35)
[2020-10-12] MEDS: ALBUTEROL/IPRATROPIUM 3 ML NEB RESP TX SCH ×6 (00:55→20:38)
[2020-10-12] MEDS: CEFEPIME 1,000 MG in SODIUM CHLORIDE 0.9% 100 ML IV SCH ×4 (03:55→21:53)
[2020-10-12 04:44] LABS: ABG Base Excess 5.7 MMOL/L (-2.5-2.5); ABG HCO3 29.5 MMOL/L (20-26); ABG Oxygen Saturation 92.2 % (95-100); ABG PCO2 36.3 MM HG (35-48); ABG PH 7.509 (7.35-7.45); ABG PO2 61.1 MM HG (80-95); ABG TCO2 26.2 MMOL/L (23-27); Allen Test Positive
[2020-10-12 05:04] LABS: Basophils % 0.1 % (0.0-0.8); Hematocrit 29.5 VOL% (35.7-47.0); Hemoglobin 9.8 GM/DL (12.0-16.0); Immature Granulocytes Absolute 0.24 #; Lymphocytes # 0.6 10*3/uL (1.4-4.0); Lymphocytes % 2.5 % (21.3-54.2); Mean Corpuscular HGB Conc 33.2 GM/DL (32-36); Mean Corpuscular Volume 93.1 FL (87-102); Mean Platelet Volume 10.6 FL (9.6-12.0); Monocytes % 3.9 % (1.7-12.7); Neutrophils % 92.5 % (38.7-73.9); Platelet Count 294 T/CUMM (130-400); Red Blood Count 3.17 MC/CUMM (3.8-5.5); Red Cell Distribution Width 16.1 % (9.3-17.3); White Blood Count 23.7 T/CUMM (4-12)
[2020-10-12 05:23] LABS: Calcium 8.2 MG/DL (8.5-10.1); Osmolality,Calculated 285.4 MOS/KG (273-304); Potassium 3.6 MMOL/L (3.5-5.1)
[2020-10-12 05:28] LABS: Hypochromasia 1+; Lymphocytes 5 % (20-55); Microcytosis 1+; Platelet Estimate Adequate; Segmented Neutrophils 90 % (50-85); Total Cells Counted 100
[2020-10-12] MEDS: BUDESONIDE 0.5 MG/2 ML NEB RESP TX SCH ×2 (06:55→20:38)
[2020-10-12] MEDS: amLODIPine 10 MG TABLET PO SCH (08:45)
[2020-10-12] MEDS: ENOXAPARIN 40 MG/0.4 ML SYRINGE SUBCUT SCH (08:45)
[2020-10-12] MEDS: INSULIN GLARGINE 100 UNIT/ML SUBCUT SCH (08:46)
[2020-10-12] MEDS: MULTIVITAMIN LIQUID (CENTRUM) 60 ML BOTTLE PO SCH (08:51)
[2020-10-12] MEDS: LEVOFLOXACIN INJ 750 MG/150 ML PREMIX IV SCH (10:09)
[2020-10-12] MEDS: methylPREDNISolone SOD SUC 40 MG/1 ML VIAL IV SCH ×2 (12:07→22:26)
[2020-10-13 00:11] LABS: Anti-EJ Ab Negative (Negative); Anti-Jo-1 Ab <20 Units (<20); Anti-Ku Antibody Weak Positive (Negative); Anti-MI-2 Ab Negative (Negative); Anti-NXP-2 (P140) Antibody <20 Units (<20); Anti-OJ Ab Negative (Negative); Anti-PL-12 Ab Negative (Negative); Anti-PL-7 Ab Negative (Negative); Anti-PM/Scl-100 Antibody <20 Units (<20); Anti-SRP Ab Negative (Negative); Anti-SS-A 52kD IgG Antibody 43 Units (<20); Anti-TIF1 GAMMA Ab <20 Units (<20); Anti-U1 RNP Antibody 22 Units (<20); Anti-U2 RNP Antibody Negative (Negative); Anti-U3 RNP (Fibrillarin) Negative (Negative); MDA-5 Ab (CADM-140) <20 Units (<20)
[2020-10-13] MEDS: ALBUTEROL/IPRATROPIUM 3 ML NEB RESP TX SCH ×7 (00:36→23:40)
[2020-10-13] MEDS: CEFEPIME 1,000 MG in SODIUM CHLORIDE 0.9% 100 ML IV SCH ×3 (03:37→14:49)
[2020-10-13] MEDS: INSULIN REGULAR 100 UNIT/ML SUBCUT SCH ×4 (05:10→23:00)
[2020-10-13] MEDS: METOCLOPRAMIDE 10 MG/2 ML VIAL IV SCH ×4 (05:11→23:00)
[2020-10-13 05:55] LABS: Basophils % 0.1 % (0.0-0.8); Hematocrit 28.9 VOL% (35.7-47.0); Hemoglobin 9.3 GM/DL (12.0-16.0); Immature Granulocytes Absolute 0.26 #; Lymphocytes # 0.8 10*3/uL (1.4-4.0); Mean Corpuscular HGB Conc 32.2 GM/DL (32-36); Mean Corpuscular Volume 94.8 FL (87-102); Mean Platelet Volume 10.9 FL (9.6-12.0); Monocytes % 5.8 % (1.7-12.7); Neutrophils % 90.1 % (38.7-73.9); Platelet Count 279 T/CUMM (130-400); Red Blood Count 3.05 MC/CUMM (3.8-5.5); Red Cell Distribution Width 16.5 % (9.3-17.3); White Blood Count 25.1 T/CUMM (4-12)
[2020-10-13 06:38] LABS: Band Neutrophils 1 % (0-10); Hypochromasia 1+; Lymphocytes 7 % (20-55); Segmented Neutrophils 87 % (50-85); Total Cells Counted 100
[2020-10-13 06:39] LABS: Microcytosis 1+; Platelet Estimate Normal
[2020-10-13] MEDS: BUDESONIDE 0.5 MG/2 ML NEB RESP TX SCH ×2 (07:16→19:45)
[2020-10-13] MEDS: amLODIPine 10 MG TABLET PO SCH (09:15)
[2020-10-13] MEDS: ENOXAPARIN 40 MG/0.4 ML SYRINGE SUBCUT SCH (09:15)
[2020-10-13] MEDS: INSULIN GLARGINE 100 UNIT/ML SUBCUT SCH (09:16)
[2020-10-13] MEDS: MULTIVITAMIN LIQUID (CENTRUM) 60 ML BOTTLE PO SCH (09:25)
[2020-10-13] MEDS: LEVOFLOXACIN INJ 750 MG/150 ML PREMIX IV SCH (10:31)
[2020-10-13] MEDS: methylPREDNISolone SOD SUC 40 MG/1 ML VIAL IV SCH (10:35)
[2020-10-14] MEDS: ALBUTEROL/IPRATROPIUM 3 ML NEB RESP TX SCH ×5 (04:21→18:08)
[2020-10-14 05:10] LABS: Basophils % 0.1 % (0.0-0.8); Eosinophils # 0.1 10*3/uL (0.0-0.87); Eosinophils % 0.3 % (0.00-10.9); Hematocrit 28.3 VOL% (35.7-47.0); Hemoglobin 9.2 GM/DL (12.0-16.0); Immature Granulocytes % 1.1 %; Immature Granulocytes Absolute 0.33 #; Lymphocytes # 1.8 10*3/uL (1.4-4.0); Lymphocytes % 6.1 % (21.3-54.2); Mean Corpuscular HGB Conc 32.5 GM/DL (32-36); Mean Corpuscular Volume 96.3 FL (87-102); Mean Platelet Volume 10.9 FL (9.6-12.0); Monocytes % 9.7 % (1.7-12.7); Neutrophils % 82.7 % (38.7-73.9); Platelet Count 247 T/CUMM (130-400); Red Blood Count 2.94 MC/CUMM (3.8-5.5); White Blood Count 29.1 T/CUMM (4-12)
[2020-10-14 05:28] LABS: Calcium 7.9 MG/DL (8.5-10.1); Osmolality,Calculated 289.8 MOS/KG (273-304); Potassium 2.8 MMOL/L (3.5-5.1)
[2020-10-14 05:34] LABS: Eosinophils 3 % (0-10); Lymphocytes 6 % (20-55); Segmented Neutrophils 79 % (50-85); Total Cells Counted 100
[2020-10-14 05:35] LABS: Platelet Estimate Normal
[2020-10-14] MEDS: POTASSIUM CHLORIDE 20 MEQ TABLET PO PRN ×4 (05:35→09:36)
[2020-10-14] MEDS: METOCLOPRAMIDE 10 MG/2 ML VIAL IV SCH ×3 (05:35→17:04)
[2020-10-14] MEDS: INSULIN REGULAR 100 UNIT/ML SUBCUT SCH ×3 (05:50→17:06)
[2020-10-14] MEDS: BUDESONIDE 0.5 MG/2 ML NEB RESP TX SCH ×2 (07:17→18:08)
[2020-10-14] MEDS: LEVOFLOXACIN INJ 750 MG/150 ML PREMIX IV SCH (09:36)
[2020-10-14] MEDS: amLODIPine 10 MG TABLET PO SCH (09:37)
[2020-10-14] MEDS: predniSONE 20 MG TABLET PO SCH (09:37)
[2020-10-14] MEDS: INSULIN GLARGINE 100 UNIT/ML SUBCUT SCH (09:38)
[2020-10-14] MEDS: ENOXAPARIN 40 MG/0.4 ML SYRINGE SUBCUT SCH (09:38)
[2020-10-14] MEDS ORDERED: GLUCAGON 1 MG VIAL IM PRN (10:04)
[2020-10-14] MEDS ORDERED: DEXTROSE 50% 25 GM/50 ML VIAL IV PRN (10:04)
[2020-10-14] MEDS: MULTIVITAMIN LIQUID (CENTRUM) 60 ML BOTTLE PO SCH (11:37)
[2020-10-15] MEDS: INSULIN REGULAR 100 UNIT/ML SUBCUT SCH ×4 (02:30→18:16)
[2020-10-15] MEDS: METOCLOPRAMIDE 10 MG/2 ML VIAL IV SCH ×4 (02:30→19:00)
[2020-10-15] MEDS: ALBUTEROL/IPRATROPIUM 3 ML NEB RESP TX SCH ×7 (03:16→23:53)
[2020-10-15 05:26] LABS: Calcium 8.2 MG/DL (8.5-10.1); Osmolality,Calculated 291.7 MOS/KG (273-304); Potassium 3.2 MMOL/L (3.5-5.1)
[2020-10-15 07:49] LABS: Basophils % 0.1 % (0.0-0.8); Eosinophils # 0.2 10*3/uL (0.0-0.87); Eosinophils % 0.6 % (0.00-10.9); Hematocrit 28.3 VOL% (35.7-47.0); Hemoglobin 8.9 GM/DL (12.0-16.0); Immature Granulocytes % 1.2 %; Immature Granulocytes Absolute 0.38 #; Lymphocytes # 1.5 10*3/uL (1.4-4.0); Lymphocytes % 4.9 % (21.3-54.2); Mean Corpuscular HGB Conc 31.4 GM/DL (32-36); Mean Corpuscular Volume 96.6 FL (87-102); Mean Platelet Volume 11.4 FL (9.6-12.0); Monocytes % 8.1 % (1.7-12.7); Neutrophils % 85.1 % (38.7-73.9); Platelet Count 206 T/CUMM (130-400); Red Blood Count 2.93 MC/CUMM (3.8-5.5); Red Cell Distribution Width 17.6 % (9.3-17.3); White Blood Count 31.3 T/CUMM (4-12)
[2020-10-15] MEDS: MULTIVITAMIN LIQUID (CENTRUM) 60 ML BOTTLE PO SCH (08:07)
[2020-10-15] MEDS: predniSONE 20 MG TABLET PO SCH (08:08)
[2020-10-15] MEDS: amLODIPine 10 MG TABLET PO SCH (08:09)
[2020-10-15] MEDS: ENOXAPARIN 40 MG/0.4 ML SYRINGE SUBCUT SCH (08:09)
[2020-10-15] MEDS: INSULIN GLARGINE 100 UNIT/ML SUBCUT SCH (08:09)
[2020-10-15] MEDS: ACETAMINOPHEN 325 MG TABLET PO PRN (08:11)
[2020-10-15 08:17] LABS: Lymphocytes 5 % (20-55); Segmented Neutrophils 89 % (50-85); Total Cells Counted 100
[2020-10-15 08:18] LABS: Anisocytosis 1+; Platelet Estimate Normal; Polychromasia Slight
[2020-10-15] MEDS ORDERED: MAGNESIUM SULF RIDER 2 GM/50 ML PREMIX IV PRN (10:00)
[2020-10-15] MEDS: BUDESONIDE 0.5 MG/2 ML NEB RESP TX SCH ×2 (10:30→20:20)
[2020-10-15] MEDS ORDERED: predniSONE 20 MG TABLET PO SCH (10:30)
[2020-10-15] MEDS: LEVOFLOXACIN INJ 750 MG/150 ML PREMIX IV SCH (11:30)
[2020-10-15 21:54] LABS: ABG Base Excess -4.7 MMOL/L (-2.5-2.5); ABG HCO3 19.7 MMOL/L (20-26); ABG Oxygen Saturation 46.8 % (95-100); ABG PCO2 26.5 MM HG (35-48); ABG PH 7.445 (7.35-7.45); ABG TCO2 16.7 MMOL/L (23-27); Allen Test Positive
[2020-10-16 00:16] LABS: ABG Base Excess -3.6 MMOL/L (-2.5-2.5); ABG HCO3 19.1 MMOL/L (20-26); ABG Oxygen Saturation 78.7 % (95-100); ABG PCO2 26.5 MM HG (35-48); ABG PH 7.475 (7.35-7.45); ABG PO2 44.6 MM HG (80-95); ABG TCO2 19.9 MMOL/L (23-27); Allen Test Positive; Pt O2 Delivery Device Other
[2020-10-16] MEDS: INSULIN REGULAR 100 UNIT/ML SUBCUT SCH ×4 (00:52→17:10)
[2020-10-16] MEDS: METOCLOPRAMIDE 10 MG/2 ML VIAL IV SCH ×4 (00:52→17:11)
[2020-10-16 02:50] LABS: ABG Base Excess -4.4 MMOL/L (-2.5-2.5); ABG PCO2 34.7 MM HG (35-48); ABG PH 7.373 (7.35-7.45); ABG TCO2 18.8 MMOL/L (23-27)
[2020-10-16 02:52] LABS: ABG PO2 30.2 MM HG (80-95)
[2020-10-16] MEDS ORDERED: VECURONIUM 10 MG VIAL IV ONE ×2 (03:17→03:32)
[2020-10-16] MEDS ORDERED: ETOMIDATE 20 MG/10 ML VIAL IV ONE ×2 (03:17→03:31)
[2020-10-16 04:52] LABS: ABG Base Excess -3.5 MMOL/L (-2.5-2.5); ABG HCO3 21.3 MMOL/L (20-26); ABG Oxygen Saturation 90.6 % (95-100); ABG PCO2 58.2 MM HG (35-48); ABG PH 7.236 (7.35-7.45); ABG PO2 76.6 MM HG (80-95); ABG TCO2 22.9 MMOL/L (23-27); Allen Test Positive; Pt O2 Delivery Device Other
[2020-10-16 04:54] LABS: Basophils # 0.1 10*3/uL (0.0-0.2); Basophils % 0.2 % (0.0-0.8); Hematocrit 29.8 VOL% (35.7-47.0); Hemoglobin 9.4 GM/DL (12.0-16.0); Immature Granulocytes % 1.7 %; Lymphocytes # 0.9 10*3/uL (1.4-4.0); Lymphocytes % 1.9 % (21.3-54.2); Mean Corpuscular HGB Conc 31.5 GM/DL (32-36); Mean Corpuscular Volume 99.7 FL (87-102); Monocytes % 6.6 % (1.7-12.7); Neutrophils % 89.6 % (38.7-73.9); Platelet Count 192 T/CUMM (130-400); Red Blood Count 2.99 MC/CUMM (3.8-5.5); Red Cell Distribution Width 18.3 % (9.3-17.3)
[2020-10-16] MEDS: ALBUTEROL/IPRATROPIUM 3 ML NEB RESP TX SCH ×6 (05:00→23:45)
[2020-10-16 05:06] LABS: Albumin 2.6 G/DL (3.4-5.0); Osmolality,Calculated 297.6 MOS/KG (273-304); Potassium 3.7 MMOL/L (3.5-5.1); Total Protein 6.2 G/DL (6.4-8.2)
[2020-10-16 05:17] LABS: White Blood Count 46.4 T/CUMM (4-12)
[2020-10-16 05:39] LABS: Hypochromasia Slight; Lymphocytes 2 % (20-55); Microcytosis 1+; Segmented Neutrophils 95 % (50-85); Total Cells Counted 100
[2020-10-16 05:40] LABS: Platelet Estimate Adequate; Polychromasia Slight
[2020-10-16] MEDS: BUDESONIDE 0.5 MG/2 ML NEB RESP TX SCH ×2 (07:20→19:25)
[2020-10-16] MEDS ORDERED: FUROSEMIDE 40 MG/4 ML VIAL IV ONE (08:18)
[2020-10-16] MEDS: methylPREDNISolone SOD SUC 40 MG/1 ML VIAL IV SCH ×3 (08:38→20:51)
[2020-10-16] MEDS: PIPERACILLIN/TAZOBACTAM 3,375 MG in SODIUM CHLORIDE 0.9% 100 ML IV SCH ×2 (08:38→16:30)
[2020-10-16] MEDS: amLODIPine 10 MG TABLET PO SCH (08:39)
[2020-10-16] MEDS: INSULIN GLARGINE 100 UNIT/ML SUBCUT SCH (08:39)
[2020-10-16] MEDS: ENOXAPARIN 40 MG/0.4 ML SYRINGE SUBCUT SCH (08:39)
[2020-10-16] MEDS: MULTIVITAMIN LIQUID (CENTRUM) 60 ML BOTTLE PO SCH (08:39)
[2020-10-16] MEDS ORDERED: MIDAZOLAM 100 MG in SODIUM CHLORIDE 0.9% 80 ML IV PRN (09:49)
[2020-10-16] MEDS ORDERED: DEXTROSE 5% 1,000 ML IV SCH (10:00)
[2020-10-16] MEDS ORDERED: cloNIDine 0.1 MG/24 HR PATCH TRANSDERM SCH (11:00)
[2020-10-16] MEDS ORDERED: NOREPINEPHRINE 4 MG/4 ML VIAL IV ONE (13:12)
[2020-10-16] MEDS: NOREPINEPHRINE 8 MG in SODIUM CHLORIDE 0.9% 242 ML IV PRN (13:25)
[2020-10-16] MEDS: FUROSEMIDE 40 MG/4 ML VIAL IV SCH (16:30)
[2020-10-16] MEDS: fentaNYL INJ 1,250 MCG in SODIUM CHLORIDE 0.9% 225 ML IV PRN (18:01)
[2020-10-16] MEDS ORDERED: PHENYLEPHRINE DRIP 40 MG/250 ML PREMIX IV PRN (22:46)
[2020-10-16] MEDS ORDERED: ROCURONIUM 500 MG in SODIUM CHLORIDE 0.9% 500 ML IV PRN (22:46)
[2020-10-17] MEDS: INSULIN REGULAR 100 UNIT/ML SUBCUT SCH ×4 (00:09→18:11)
[2020-10-17] MEDS: METOCLOPRAMIDE 10 MG/2 ML VIAL IV SCH ×4 (00:34→18:12)
[2020-10-17] MEDS: PIPERACILLIN/TAZOBACTAM 3,375 MG in SODIUM CHLORIDE 0.9% 100 ML IV SCH ×3 (00:47→17:20)
[2020-10-17] MEDS: methylPREDNISolone SOD SUC 40 MG/1 ML VIAL IV SCH ×4 (02:28→20:16)
[2020-10-17] MEDS: ALBUTEROL/IPRATROPIUM 3 ML NEB RESP TX SCH ×6 (03:56→23:27)
[2020-10-17 04:55] LABS: ABG Base Excess -3.9 MMOL/L (-2.5-2.5); ABG HCO3 21.4 MMOL/L (20-26); ABG Oxygen Saturation 99.3 % (95-100); ABG PCO2 39.4 MM HG (35-48); ABG PH 7.352 (7.35-7.45); ABG PO2 375.5 MM HG (80-95); ABG TCO2 22.6 MMOL/L (23-27); Allen Test Positive; Pt O2 Delivery Device Ventilator
[2020-10-17 06:06] LABS: Basophils % 0.1 % (0.0-0.8); Hematocrit 29.3 VOL% (35.7-47.0); Hemoglobin 9.1 GM/DL (12.0-16.0); Immature Granulocytes % 1.3 %; Immature Granulocytes Absolute 0.43 #; Lymphocytes # 0.5 10*3/uL (1.4-4.0); Lymphocytes % 1.5 % (21.3-54.2); Mean Corpuscular HGB Conc 31.1 GM/DL (32-36); Mean Corpuscular Volume 97.7 FL (87-102); Mean Platelet Volume 11.1 FL (9.6-12.0); Monocytes % 2.3 % (1.7-12.7); Neutrophils % 94.8 % (38.7-73.9); Platelet Count 155 T/CUMM (130-400); Red Cell Distribution Width 17.8 % (9.3-17.3); White Blood Count 32.4 T/CUMM (4-12)
[2020-10-17 06:38] LABS: Eosinophils 1 % (0-10); Hypochromasia Slight; Lymphocytes 2 % (20-55); Segmented Neutrophils 96 % (50-85); Total Cells Counted 100
[2020-10-17 06:39] LABS: Anisocytosis 1+; Microcytosis 1+; Platelet Estimate Adequate
[2020-10-17 06:43] LABS: Albumin 2.5 G/DL (3.4-5.0); Bilirubin,Direct 0.21 MG/DL (0.0-0.20); Bilirubin,Indirect 1.2 MG/DL (0.0-1.0); Bilirubin,Total 1.4 MG/DL (0.2-1.0); Calcium 8.2 MG/DL (8.5-10.1); Osmolality,Calculated 305.6 MOS/KG (273-304); Potassium 3.8 MMOL/L (3.5-5.1); Total Protein 6.2 G/DL (6.4-8.2)
[2020-10-17 06:44] LABS: Albumin 2.6 G/DL (3.4-5.0); Bilirubin,Total 1.2 MG/DL (0.2-1.0); Calcium 8.2 MG/DL (8.5-10.1); Osmolality,Calculated 305.6 MOS/KG (273-304); Potassium 3.7 MMOL/L (3.5-5.1); Total Protein 6.3 G/DL (6.4-8.2)
[2020-10-17] MEDS: BUDESONIDE 0.5 MG/2 ML NEB RESP TX SCH ×2 (07:23→19:03)
[2020-10-17] MEDS: fentaNYL INJ 1,250 MCG in SODIUM CHLORIDE 0.9% 225 ML IV PRN ×2 (09:23→17:11)
[2020-10-17] MEDS: FUROSEMIDE 40 MG/4 ML VIAL IV SCH (09:50)
[2020-10-17] MEDS: MULTIVITAMIN LIQUID (CENTRUM) 60 ML BOTTLE PO SCH (09:53)
[2020-10-17] MEDS: ENOXAPARIN 40 MG/0.4 ML SYRINGE SUBCUT SCH (09:54)
[2020-10-17] MEDS: INSULIN GLARGINE 100 UNIT/ML SUBCUT SCH (09:54)
[2020-10-17] MEDS: POTASSIUM CHLORIDE RIDER 10 MEQ/100 ML PREMIX IV PRN ×2 (10:00→11:04)
[2020-10-17] MEDS: FUROSEMIDE 20 MG/2 ML VIAL IV SCH (10:21)
[2020-10-17] MEDS: NOREPINEPHRINE 8 MG in SODIUM CHLORIDE 0.9% 242 ML IV PRN (15:08)
[2020-10-18] MEDS: INSULIN REGULAR 100 UNIT/ML SUBCUT SCH ×4 (00:22→17:36)
[2020-10-18] MEDS: METOCLOPRAMIDE 10 MG/2 ML VIAL IV SCH ×3 (00:23→20:17)
[2020-10-18] MEDS: PIPERACILLIN/TAZOBACTAM 3,375 MG in SODIUM CHLORIDE 0.9% 100 ML IV SCH ×3 (00:25→15:53)
[2020-10-18] MEDS: fentaNYL INJ 1,250 MCG in SODIUM CHLORIDE 0.9% 225 ML IV PRN ×2 (01:25→08:00)
[2020-10-18] MEDS: methylPREDNISolone SOD SUC 40 MG/1 ML VIAL IV SCH ×4 (02:00→20:17)
[2020-10-18] MEDS: ALBUTEROL/IPRATROPIUM 3 ML NEB RESP TX SCH ×6 (02:57→23:13)
[2020-10-18 04:22] LABS: ABG HCO3 19.4 MMOL/L (20-26); ABG Oxygen Saturation 98.5 % (95-100); ABG PCO2 37.8 MM HG (35-48); ABG PH 7.328 (7.35-7.45); ABG PO2 180.6 MM HG (80-95); ABG TCO2 20.6 MMOL/L (23-27); Allen Test Positive; Pt O2 Delivery Device Ventilator
[2020-10-18 04:36] LABS: Basophils % 0.1 % (0.0-0.8); Hematocrit 26.2 VOL% (35.7-47.0); Hemoglobin 8.1 GM/DL (12.0-16.0); Immature Granulocytes Absolute 0.28 #; Lymphocytes # 0.7 10*3/uL (1.4-4.0); Lymphocytes % 2.7 % (21.3-54.2); Mean Corpuscular HGB Conc 30.9 GM/DL (32-36); Mean Corpuscular Volume 98.9 FL (87-102); Mean Platelet Volume 10.9 FL (9.6-12.0); Neutrophils % 91.2 % (38.7-73.9); Platelet Count 134 T/CUMM (130-400); Red Blood Count 2.65 MC/CUMM (3.8-5.5); Red Cell Distribution Width 17.4 % (9.3-17.3)
[2020-10-18 04:49] LABS: Albumin 2.4 G/DL (3.4-5.0); Bilirubin,Direct 0.14 MG/DL (0.0-0.20); Bilirubin,Indirect 0.5 MG/DL (0.0-1.0); Bilirubin,Total 0.6 MG/DL (0.2-1.0); Calcium 8.3 MG/DL (8.5-10.1); Osmolality,Calculated 318.3 MOS/KG (273-304); Potassium 3.8 MMOL/L (3.5-5.1)
[2020-10-18 05:17] LABS: Hypochromasia 1+; Lymphocytes 2 % (20-55); Microcytosis 1+; Segmented Neutrophils 94 % (50-85); Total Cells Counted 100
[2020-10-18 05:18] LABS: Platelet Estimate Adequate
[2020-10-18] MEDS: BUDESONIDE 0.5 MG/2 ML NEB RESP TX SCH ×2 (07:42→19:20)
[2020-10-18] MEDS: MULTIVITAMIN LIQUID (CENTRUM) 60 ML BOTTLE PO SCH (08:29)
[2020-10-18] MEDS: ENOXAPARIN 40 MG/0.4 ML SYRINGE SUBCUT SCH (08:30)
[2020-10-18] MEDS: INSULIN GLARGINE 100 UNIT/ML SUBCUT SCH (08:30)
[2020-10-18] MEDS: FUROSEMIDE 20 MG/2 ML VIAL IV SCH (09:38)
[2020-10-18] MEDS ORDERED: LACTATED RINGERS 500 ML IV ONE (12:24)
[2020-10-19] MEDS: INSULIN REGULAR 100 UNIT/ML SUBCUT SCH ×5 (00:12→23:55)
[2020-10-19] MEDS: PIPERACILLIN/TAZOBACTAM 3,375 MG in SODIUM CHLORIDE 0.9% 100 ML IV SCH ×2 (01:10→10:22)
[2020-10-19 02:54] LABS: ABG Base Excess 0.5 MMOL/L (-2.5-2.5); ABG HCO3 24.9 MMOL/L (20-26); ABG Oxygen Saturation 97.9 % (95-100); ABG PCO2 34.9 MM HG (35-48); ABG PO2 94.2 MM HG (80-95); ABG TCO2 22.6 MMOL/L (23-27)
[2020-10-19] MEDS: methylPREDNISolone SOD SUC 40 MG/1 ML VIAL IV SCH ×4 (03:32→20:21)
[2020-10-19] MEDS: ALBUTEROL/IPRATROPIUM 3 ML NEB RESP TX SCH ×5 (04:00→19:15)
[2020-10-19 05:11] LABS: Basophils % 0.1 % (0.0-0.8); Eosinophils % 0.1 % (0.00-10.9); Hemoglobin 7.4 GM/DL (12.0-16.0); Immature Granulocytes % 0.6 %; Immature Granulocytes Absolute 0.11 #; Lymphocytes # 0.5 10*3/uL (1.4-4.0); Lymphocytes % 2.6 % (21.3-54.2); Mean Corpuscular HGB Conc 32.2 GM/DL (32-36); Mean Corpuscular Volume 96.2 FL (87-102); Mean Platelet Volume 11.6 FL (9.6-12.0); Monocytes % 4.6 % (1.7-12.7); Platelet Count 85 T/CUMM (130-400); Red Blood Count 2.39 MC/CUMM (3.8-5.5); Red Cell Distribution Width 18.2 % (9.3-17.3); White Blood Count 17.6 T/CUMM (4-12)
[2020-10-19 05:35] LABS: Hypochromasia 1+; Lymphocytes 1 % (20-55); Microcytosis 1+; Platelet Estimate Decreased; Segmented Neutrophils 97 % (50-85); Total Cells Counted 100
[2020-10-19 05:39] LABS: Albumin 2.2 G/DL (3.4-5.0); Bilirubin,Total 0.7 MG/DL (0.2-1.0); Calcium 8.2 MG/DL (8.5-10.1); Ferritin 478.7 ng/ml (8-252); Osmolality,Calculated 310.1 MOS/KG (273-304); Potassium 3.4 MMOL/L (3.5-5.1); Total Protein 5.5 G/DL (6.4-8.2)
[2020-10-19] MEDS: BUDESONIDE 0.5 MG/2 ML NEB RESP TX SCH ×2 (07:56→19:15)
[2020-10-19] MEDS: FAMOTIDINE 20 MG/2 ML VIAL IV SCH ×2 (09:27→20:21)
[2020-10-19] MEDS: POTASSIUM CHLORIDE 20 MEQ/15 ML UDCUP PER TUBE PRN ×3 (09:27→15:20)
[2020-10-19] MEDS: ENOXAPARIN 40 MG/0.4 ML SYRINGE SUBCUT SCH (09:27)
[2020-10-19] MEDS: MULTIVITAMIN LIQUID (CENTRUM) 60 ML BOTTLE PO SCH (09:28)
[2020-10-19] MEDS: INSULIN GLARGINE 100 UNIT/ML SUBCUT SCH (09:28)
[2020-10-19] MEDS: METOCLOPRAMIDE 10 MG/2 ML VIAL IV SCH ×2 (09:28→20:22)
[2020-10-19] MEDS: DEXMEDETOMIDINE 200 MCG in SODIUM CHLORIDE 0.9% 48 ML IV PRN ×2 (15:33→20:20)
[2020-10-19] MEDS: cefTRIAXone 1,000 MG in SODIUM CHLORIDE 0.9% 100 ML IV SCH (20:22)
[2020-10-19] MEDS: AZITHROMYCIN INJ 250 MG in SODIUM CHLORIDE 0.9% 250 ML IV SCH (20:23)
[2020-10-20] MEDS: ALBUTEROL/IPRATROPIUM 3 ML NEB RESP TX SCH ×2 (00:34→02:16)
[2020-10-20] MEDS: methylPREDNISolone SOD SUC 40 MG/1 ML VIAL IV SCH ×4 (02:39→20:03)
[2020-10-20 04:01] LABS: ABG Base Excess 1.6 MMOL/L (-2.5-2.5); ABG HCO3 25.8 MMOL/L (20-26); ABG Oxygen Saturation 94.2 % (95-100); ABG PCO2 33.6 MM HG (35-48); ABG PH 7.478 (7.35-7.45); ABG PO2 68.8 MM HG (80-95); ABG TCO2 22.8 MMOL/L (23-27); Allen Test Positive; Pt O2 Delivery Device Ventilator
[2020-10-20 04:55] LABS: Basophils % 0.1 % (0.0-0.8); Hematocrit 27.6 VOL% (35.7-47.0); Immature Granulocytes % 0.6 %; Immature Granulocytes Absolute 0.09 #; Lymphocytes # 0.5 10*3/uL (1.4-4.0); Lymphocytes % 3.4 % (21.3-54.2); Mean Corpuscular HGB Conc 32.6 GM/DL (32-36); Mean Corpuscular Volume 95.8 FL (87-102); Mean Platelet Volume 12.1 FL (9.6-12.0); Neutrophils % 90.9 % (38.7-73.9); Platelet Count 69 T/CUMM (130-400); Red Cell Distribution Width 18.3 % (9.3-17.3); White Blood Count 14.9 T/CUMM (4-12)
[2020-10-20 04:57] LABS: Red Blood Count 2.88 MC/CUMM (3.8-5.5)
[2020-10-20 05:11] LABS: Calcium 8.3 MG/DL (8.5-10.1); Potassium 4.6 MMOL/L (3.5-5.1)
[2020-10-20] MEDS: INSULIN REGULAR 100 UNIT/ML SUBCUT SCH ×4 (05:13→23:48)
[2020-10-20 05:17] LABS: Hypochromasia 1+; Lymphocytes 3 % (20-55); Microcytosis 1+; Platelet Estimate Decreased; Segmented Neutrophils 94 % (50-85); Total Cells Counted 100
[2020-10-20 05:21] LABS: Ferritin 483.8 ng/ml (8-252)
[2020-10-20] MEDS: DEXMEDETOMIDINE 200 MCG in SODIUM CHLORIDE 0.9% 48 ML IV PRN (05:29)
[2020-10-20] MEDS ORDERED: LACTATED RINGERS 500 ML IV ONE ×2 (08:07→09:00)
[2020-10-20] MEDS: METOCLOPRAMIDE 10 MG/2 ML VIAL IV SCH (08:12)
[2020-10-20] MEDS: FAMOTIDINE 20 MG/2 ML VIAL IV SCH ×2 (08:12→20:03)
[2020-10-20] MEDS: ALBUTEROL INHALER 18 GM INH SCH ×3 (08:13→18:21)
[2020-10-20] MEDS: INSULIN GLARGINE 100 UNIT/ML SUBCUT SCH (08:13)
[2020-10-20] MEDS: FONDAPARINUX 2.5 MG/0.5 ML SYRINGE SUBCUT SCH (09:06)
[2020-10-20] MEDS: NOREPINEPHRINE 8 MG in SODIUM CHLORIDE 0.9% 242 ML IV PRN (11:36)
[2020-10-20] MEDS: MULTIVITAMIN LIQUID (CENTRUM) 60 ML BOTTLE PO SCH (11:38)
[2020-10-20] MEDS: DEXMEDETOMIDINE 400 MCG in SODIUM CHLORIDE 0.9% 96 ML IV PRN (12:50)
[2020-10-20] MEDS: BUDESONIDE 0.5 MG/2 ML NEB RESP TX SCH (17:46)
[2020-10-20] MEDS: cefTRIAXone 1,000 MG in SODIUM CHLORIDE 0.9% 100 ML IV SCH (20:04)
[2020-10-20] MEDS: AZITHROMYCIN INJ 250 MG in SODIUM CHLORIDE 0.9% 250 ML IV SCH (20:04)
[2020-10-20] MEDS: METOCLOPRAMIDE 10 MG/10 ML UDCUP PO SCH (20:11)
[2020-10-21] MEDS: fentaNYL 100 MCG/2 ML VIAL IV PRN ×4 (01:11→18:20)
[2020-10-21] MEDS: ALBUTEROL INHALER 18 GM INH SCH ×4 (01:11→20:21)
[2020-10-21] MEDS: methylPREDNISolone SOD SUC 40 MG/1 ML VIAL IV SCH ×4 (03:15→20:21)
[2020-10-21] MEDS: DEXMEDETOMIDINE 400 MCG in SODIUM CHLORIDE 0.9% 96 ML IV PRN (03:56)
[2020-10-21 04:13] LABS: Basophils % 0.1 % (0.0-0.8); Eosinophils % 0.1 % (0.00-10.9); Hematocrit 27.2 VOL% (35.7-47.0); Hemoglobin 8.8 GM/DL (12.0-16.0); Immature Granulocytes % 1.2 %; Immature Granulocytes Absolute 0.19 #; Lymphocytes # 0.4 10*3/uL (1.4-4.0); Lymphocytes % 2.3 % (21.3-54.2); Mean Corpuscular HGB Conc 32.4 GM/DL (32-36); Mean Corpuscular Volume 95.4 FL (87-102); Mean Platelet Volume 11.7 FL (9.6-12.0); Monocytes % 3.4 % (1.7-12.7); Neutrophils % 92.9 % (38.7-73.9); Platelet Count 69 T/CUMM (130-400); Red Blood Count 2.85 MC/CUMM (3.8-5.5); Red Cell Distribution Width 17.9 % (9.3-17.3); White Blood Count 16.2 T/CUMM (4-12)
[2020-10-21 04:25] LABS: Calcium 8.2 MG/DL (8.5-10.1); Osmolality,Calculated 300.8 MOS/KG (273-304)
[2020-10-21 04:32] LABS: Lymphocytes 2 % (20-55); Segmented Neutrophils 97 % (50-85); Total Cells Counted 100
[2020-10-21 04:33] LABS: Hypochromasia Slight; Microcytosis 1+; Platelet Estimate Decreased
[2020-10-21 05:08] LABS: ABG Base Excess 1.4 MMOL/L (-2.5-2.5); ABG HCO3 25.6 MMOL/L (20-26); ABG Oxygen Saturation 94.3 % (95-100); ABG PCO2 33.1 MM HG (35-48); ABG PO2 69.9 MM HG (80-95); ABG TCO2 22.8 MMOL/L (23-27)
[2020-10-21] MEDS: BUDESONIDE 0.5 MG/2 ML NEB RESP TX SCH (05:13)
[2020-10-21] MEDS: INSULIN REGULAR 100 UNIT/ML SUBCUT SCH ×3 (05:39→18:21)
[2020-10-21] MEDS: FAMOTIDINE 20 MG/2 ML VIAL IV SCH ×2 (08:38→20:21)
[2020-10-21] MEDS: FONDAPARINUX 2.5 MG/0.5 ML SYRINGE SUBCUT SCH (08:38)
[2020-10-21] MEDS: MULTIVITAMIN LIQUID (CENTRUM) 60 ML BOTTLE PO SCH (08:39)
[2020-10-21] MEDS: METOCLOPRAMIDE 10 MG/10 ML UDCUP PO SCH ×2 (08:39→21:10)
[2020-10-21] MEDS: INSULIN GLARGINE 100 UNIT/ML SUBCUT SCH (08:39)
[2020-10-21] MEDS: AZITHROMYCIN INJ 250 MG in SODIUM CHLORIDE 0.9% 250 ML IV SCH (20:21)
[2020-10-21] MEDS: cefTRIAXone 1,000 MG in SODIUM CHLORIDE 0.9% 100 ML IV SCH (20:22)
[2020-10-22] MEDS: INSULIN REGULAR 100 UNIT/ML SUBCUT SCH ×5 (00:25→23:44)
[2020-10-22] MEDS: ALBUTEROL INHALER 18 GM INH SCH ×4 (00:26→19:30)
[2020-10-22] MEDS: methylPREDNISolone SOD SUC 40 MG/1 ML VIAL IV SCH ×4 (02:10→20:39)
[2020-10-22 04:32] LABS: Basophils % 0.1 % (0.0-0.8); Hematocrit 28.3 VOL% (35.7-47.0); Hemoglobin 9.1 GM/DL (12.0-16.0); Immature Granulocytes % 1.7 %; Immature Granulocytes Absolute 0.31 #; Lymphocytes # 0.4 10*3/uL (1.4-4.0); Lymphocytes % 2.2 % (21.3-54.2); Mean Corpuscular HGB Conc 32.2 GM/DL (32-36); Mean Corpuscular Volume 95.6 FL (87-102); Mean Platelet Volume 12.3 FL (9.6-12.0); Monocytes % 3.1 % (1.7-12.7); NRBC # 0.02 10*3/uL; Neutrophils % 92.9 % (38.7-73.9); Red Blood Count 2.96 MC/CUMM (3.8-5.5); Red Cell Distribution Width 17.9 % (9.3-17.3); White Blood Count 18.2 T/CUMM (4-12)
[2020-10-22 04:33] LABS: Platelet Count 76 T/CUMM (130-400)
[2020-10-22 04:45] LABS: Calcium 8.3 MG/DL (8.5-10.1); Osmolality,Calculated 295.8 MOS/KG (273-304); Potassium 3.4 MMOL/L (3.5-5.1)
[2020-10-22 04:48] LABS: ABG Base Excess 0.9 MMOL/L (-2.5-2.5); ABG Oxygen Saturation 96.1 % (95-100); ABG PCO2 32.7 MM HG (35-48); ABG PH 7.484 (7.35-7.45); ABG PO2 85.7 MM HG (80-95); Allen Test Positive; Pt O2 Delivery Device Ventilator
[2020-10-22 05:43] LABS: Band Neutrophils 3 % (0-10); Lymphocytes 2 % (20-55); Segmented Neutrophils 92 % (50-85); Total Cells Counted 100
[2020-10-22 05:44] LABS: Anisocytosis 1+; Macrocytosis 1+; Platelet Estimate Decreased
[2020-10-22] MEDS: POTASSIUM CHLORIDE 20 MEQ TABLET PO PRN (05:57)
[2020-10-22] MEDS: FONDAPARINUX 2.5 MG/0.5 ML SYRINGE SUBCUT SCH (08:56)
[2020-10-22] MEDS: INSULIN GLARGINE 100 UNIT/ML SUBCUT SCH (08:56)
[2020-10-22] MEDS: POTASSIUM CHLORIDE 20 MEQ/15 ML UDCUP PER TUBE PRN ×2 (08:56→10:37)
[2020-10-22] MEDS: MULTIVITAMIN LIQUID (CENTRUM) 60 ML BOTTLE PO SCH (08:57)
[2020-10-22] MEDS: FAMOTIDINE 20 MG/2 ML VIAL IV SCH ×2 (08:57→20:42)
[2020-10-22] MEDS: METOCLOPRAMIDE 10 MG/10 ML UDCUP PO SCH ×2 (09:53→20:44)
[2020-10-22] MEDS: SODIUM CHLORIDE 0.9% 1,000 ML IV SCH (14:08)
[2020-10-22] MEDS: cefTRIAXone 1,000 MG in SODIUM CHLORIDE 0.9% 100 ML IV SCH (20:41)
[2020-10-22] MEDS: AZITHROMYCIN INJ 250 MG in SODIUM CHLORIDE 0.9% 250 ML IV SCH (21:18)
[2020-10-23] MEDS: methylPREDNISolone SOD SUC 40 MG/1 ML VIAL IV SCH ×4 (01:51→21:16)
[2020-10-23] MEDS: ALBUTEROL INHALER 18 GM INH SCH ×4 (01:51→18:24)
[2020-10-23 03:34] LABS: ABG Base Excess -0.1 MMOL/L (-2.5-2.5); ABG HCO3 24.3 MMOL/L (20-26); ABG Oxygen Saturation 96.5 % (95-100); ABG PCO2 36.2 MM HG (35-48); ABG PH 7.429 (7.35-7.45); ABG PO2 84.8 MM HG (80-95); ABG TCO2 21.8 MMOL/L (23-27)
[2020-10-23 04:46] LABS: Basophils % 0.2 % (0.0-0.8); Eosinophils % 0.1 % (0.00-10.9); Hematocrit 30.3 VOL% (35.7-47.0); Immature Granulocytes % 2.2 %; Immature Granulocytes Absolute 0.44 #; Lymphocytes # 0.5 10*3/uL (1.4-4.0); Lymphocytes % 2.5 % (21.3-54.2); Mean Corpuscular Volume 97.1 FL (87-102); Mean Platelet Volume 12.4 FL (9.6-12.0); Monocytes % 3.9 % (1.7-12.7); NRBC # 0.03 10*3/uL; Neutrophils % 91.1 % (38.7-73.9); Platelet Count 71 T/CUMM (130-400); Red Blood Count 3.12 MC/CUMM (3.8-5.5); Red Cell Distribution Width 18.7 % (9.3-17.3); White Blood Count 20.4 T/CUMM (4-12)
[2020-10-23 05:02] LABS: Calcium 8.2 MG/DL (8.5-10.1); Osmolality,Calculated 292.1 MOS/KG (273-304); Potassium 4.5 MMOL/L (3.5-5.1)
[2020-10-23 05:15] LABS: Lymphocytes 2 % (20-55); Nucleated Red Blood Cells 1 (0-5); Platelet Estimate Decreased; Segmented Neutrophils 94 % (50-85); Total Cells Counted 100
[2020-10-23 05:16] LABS: Hypochromasia Slight
[2020-10-23] MEDS: INSULIN REGULAR 100 UNIT/ML SUBCUT SCH ×3 (05:52→18:23)
[2020-10-23] MEDS: FONDAPARINUX 2.5 MG/0.5 ML SYRINGE SUBCUT SCH (08:19)
[2020-10-23] MEDS: FAMOTIDINE 20 MG/2 ML VIAL IV SCH ×2 (08:20→21:19)
[2020-10-23] MEDS: METOCLOPRAMIDE 10 MG/10 ML UDCUP PO SCH ×2 (08:20→21:22)
[2020-10-23] MEDS: MULTIVITAMIN LIQUID (CENTRUM) 60 ML BOTTLE PO SCH (08:20)
[2020-10-23] MEDS: INSULIN GLARGINE 100 UNIT/ML SUBCUT SCH (08:20)
[2020-10-23] MEDS: SODIUM CHLORIDE 0.9% 1,000 ML IV SCH (14:58)
[2020-10-23] MEDS: AZITHROMYCIN INJ 250 MG in SODIUM CHLORIDE 0.9% 250 ML IV SCH (21:22)
[2020-10-23] MEDS: cefTRIAXone 1,000 MG in SODIUM CHLORIDE 0.9% 100 ML IV SCH (21:22)
[2020-10-24] MEDS: INSULIN REGULAR 100 UNIT/ML SUBCUT SCH ×4 (00:56→18:18)
[2020-10-24 02:57] LABS: ABG Base Excess 1.2 MMOL/L (-2.5-2.5); ABG HCO3 25.4 MMOL/L (20-26); ABG Oxygen Saturation 94.6 % (95-100); ABG PCO2 37.3 MM HG (35-48); ABG PH 7.438 (7.35-7.45); ABG PO2 72.8 MM HG (80-95); Allen Test Positive; Pt O2 Delivery Device Ventilator
[2020-10-24] MEDS: ALBUTEROL INHALER 18 GM INH SCH ×4 (04:13→18:18)
[2020-10-24] MEDS: methylPREDNISolone SOD SUC 40 MG/1 ML VIAL IV SCH ×4 (04:20→21:30)
[2020-10-24 05:32] LABS: Basophils % 0.2 % (0.0-0.8); Hematocrit 29.8 VOL% (35.7-47.0); Hemoglobin 9.7 GM/DL (12.0-16.0); Immature Granulocytes % 2.8 %; Immature Granulocytes Absolute 0.55 #; Lymphocytes # 0.8 10*3/uL (1.4-4.0); Lymphocytes % 4.1 % (21.3-54.2); Mean Corpuscular HGB Conc 32.6 GM/DL (32-36); Mean Corpuscular Volume 97.1 FL (87-102); Mean Platelet Volume 12.6 FL (9.6-12.0); Monocytes % 7.1 % (1.7-12.7); NRBC # 0.07 10*3/uL; Neutrophils % 85.8 % (38.7-73.9); Red Blood Count 3.07 MC/CUMM (3.8-5.5); Red Cell Distribution Width 18.6 % (9.3-17.3); White Blood Count 19.8 T/CUMM (4-12)
[2020-10-24 05:42] LABS: Platelet Count 90 T/CUMM (130-400)
[2020-10-24 05:50] LABS: Calcium 8.3 MG/DL (8.5-10.1); Osmolality,Calculated 298.8 MOS/KG (273-304); Potassium 4.5 MMOL/L (3.5-5.1)
[2020-10-24 06:04] LABS: Band Neutrophils 2 % (0-10); Lymphocytes 6 % (20-55); Myelocytes 3 %; Segmented Neutrophils 84 % (50-85)
[2020-10-24 06:05] LABS: Anisocytosis 1+; Macrocytosis 1+; Platelet Estimate Decreased
[2020-10-24 06:06] LABS: Hypochromasia 1+; Polychromasia Few; Total Cells Counted 100
[2020-10-24] MEDS: INSULIN GLARGINE 100 UNIT/ML SUBCUT SCH (08:02)
[2020-10-24] MEDS: FAMOTIDINE 20 MG/2 ML VIAL IV SCH ×2 (08:02→21:33)
[2020-10-24] MEDS: FONDAPARINUX 2.5 MG/0.5 ML SYRINGE SUBCUT SCH (08:03)
[2020-10-24] MEDS: METOCLOPRAMIDE 10 MG/10 ML UDCUP PO SCH ×2 (08:03→21:30)
[2020-10-24] MEDS: MULTIVITAMIN LIQUID (CENTRUM) 60 ML BOTTLE PO SCH (08:04)
[2020-10-24] MEDS ORDERED: FUROSEMIDE 40 MG/4 ML VIAL IV ONE (10:43)
[2020-10-24] MEDS: hydrALAZINE 20 MG/1 ML VIAL IV PRN (12:07)
[2020-10-24] MEDS: SODIUM CHLORIDE 0.9% 1,000 ML IV SCH (16:34)
[2020-10-24] MEDS: cefTRIAXone 1,000 MG in SODIUM CHLORIDE 0.9% 100 ML IV SCH (21:30)
[2020-10-25] MEDS: INSULIN REGULAR 100 UNIT/ML SUBCUT SCH ×5 (00:27→23:54)
[2020-10-25] MEDS: ALBUTEROL INHALER 18 GM INH SCH ×4 (01:00→20:20)
[2020-10-25] MEDS: methylPREDNISolone SOD SUC 40 MG/1 ML VIAL IV SCH ×4 (03:30→20:37)
[2020-10-25 03:43] LABS: ABG Base Excess 4.3 MMOL/L (-2.5-2.5); ABG HCO3 28.2 MMOL/L (20-26); ABG Oxygen Saturation 96.2 % (95-100); ABG PCO2 37.5 MM HG (35-48); ABG PO2 79.4 MM HG (80-95); ABG TCO2 25.3 MMOL/L (23-27)
[2020-10-25 05:33] LABS: Basophils # 0.1 10*3/uL (0.0-0.2); Basophils % 0.2 % (0.0-0.8); Hematocrit 31.8 VOL% (35.7-47.0); Immature Granulocytes % 4.6 %; Immature Granulocytes Absolute 0.92 #; Lymphocytes # 0.6 10*3/uL (1.4-4.0); Mean Corpuscular HGB Conc 31.4 GM/DL (32-36); Mean Corpuscular Volume 99.1 FL (87-102); Mean Platelet Volume 12.7 FL (9.6-12.0); Monocytes % 5.6 % (1.7-12.7); NRBC # 0.05 10*3/uL; Neutrophils % 86.6 % (38.7-73.9); Platelet Count 104 T/CUMM (130-400); Red Blood Count 3.21 MC/CUMM (3.8-5.5); White Blood Count 20.1 T/CUMM (4-12)
[2020-10-25 05:51] LABS: Calcium 8.4 MG/DL (8.5-10.1); Potassium 4.4 MMOL/L (3.5-5.1)
[2020-10-25 05:54] LABS: Band Neutrophils 1 % (0-10); Lymphocytes 7 % (20-55); Platelet Estimate Normal; Segmented Neutrophils 86 % (50-85); Total Cells Counted 100
[2020-10-25] MEDS: MULTIVITAMIN LIQUID (CENTRUM) 60 ML BOTTLE PO SCH (08:11)
[2020-10-25] MEDS: INSULIN GLARGINE 100 UNIT/ML SUBCUT SCH (08:11)
[2020-10-25] MEDS: FONDAPARINUX 2.5 MG/0.5 ML SYRINGE SUBCUT SCH (08:11)
[2020-10-25] MEDS: FAMOTIDINE 20 MG/2 ML VIAL IV SCH ×2 (08:11→20:37)
[2020-10-25] MEDS: METOCLOPRAMIDE 10 MG/10 ML UDCUP PO SCH ×2 (08:12→20:38)
[2020-10-25] MEDS ORDERED: REMDESIVIR 200 MG in SODIUM CHLORIDE 0.9% 210 ML IV ONE (12:30)
[2020-10-25] MEDS: amLODIPine 10 MG TABLET PO SCH (13:00)
[2020-10-25] MEDS: SODIUM CHLORIDE 0.9% 1,000 ML IV SCH (17:45)
[2020-10-25] MEDS: cefTRIAXone 1,000 MG in SODIUM CHLORIDE 0.9% 100 ML IV SCH (20:38)
[2020-10-26] MEDS: ALBUTEROL INHALER 18 GM INH SCH ×4 (00:12→18:18)
[2020-10-26] MEDS: methylPREDNISolone SOD SUC 40 MG/1 ML VIAL IV SCH ×4 (03:03→20:30)
[2020-10-26 04:38] LABS: ABG Base Excess 3.2 MMOL/L (-2.5-2.5); ABG HCO3 27.2 MMOL/L (20-26); ABG Oxygen Saturation 93.2 % (95-100); ABG PCO2 50.1 MM HG (35-48); ABG PH 7.376 (7.35-7.45); ABG TCO2 26.2 MMOL/L (23-27); Allen Test Positive; Pt O2 Delivery Device Ventilator
[2020-10-26 04:39] LABS: Basophils # 0.1 10*3/uL (0.0-0.2); Basophils % 0.2 % (0.0-0.8); Hematocrit 32.6 VOL% (35.7-47.0); Hemoglobin 10.1 GM/DL (12.0-16.0); Immature Granulocytes % 3.6 %; Immature Granulocytes Absolute 0.89 #; Lymphocytes # 0.5 10*3/uL (1.4-4.0); Lymphocytes % 1.9 % (21.3-54.2); Mean Platelet Volume 12.8 FL (9.6-12.0); NRBC # 0.05 10*3/uL; Neutrophils % 87.3 % (38.7-73.9); Platelet Count 139 T/CUMM (130-400); Red Blood Count 3.26 MC/CUMM (3.8-5.5); Red Cell Distribution Width 18.6 % (9.3-17.3); White Blood Count 24.6 T/CUMM (4-12)
[2020-10-26 05:00] LABS: Band Neutrophils 3 % (0-10); Lymphocytes 3 % (20-55); Segmented Neutrophils 90 % (50-85); Total Cells Counted 100
[2020-10-26 05:01] LABS: Hypochromasia 1+; Macrocytosis 1+; Platelet Estimate Adequate; Polychromasia Slight
[2020-10-26 05:03] LABS: Calcium 8.2 MG/DL (8.5-10.1); Osmolality,Calculated 293.5 MOS/KG (273-304); Potassium 4.5 MMOL/L (3.5-5.1)
[2020-10-26] MEDS: hydrALAZINE 20 MG/1 ML VIAL IV PRN (05:12)
[2020-10-26] MEDS: INSULIN REGULAR 100 UNIT/ML SUBCUT SCH ×3 (05:36→18:18)
[2020-10-26] MEDS: FONDAPARINUX 2.5 MG/0.5 ML SYRINGE SUBCUT SCH (08:29)
[2020-10-26] MEDS: INSULIN GLARGINE 100 UNIT/ML SUBCUT SCH (08:29)
[2020-10-26] MEDS: FAMOTIDINE 20 MG/2 ML VIAL IV SCH ×2 (08:30→20:30)
[2020-10-26] MEDS: MULTIVITAMIN LIQUID (CENTRUM) 60 ML BOTTLE PO SCH (09:11)
[2020-10-26] MEDS: amLODIPine 10 MG TABLET PO SCH (09:11)
[2020-10-26] MEDS: METOCLOPRAMIDE 10 MG/10 ML UDCUP PO SCH ×2 (09:11→20:30)
[2020-10-26] MEDS: REMDESIVIR 100 MG in SODIUM CHLORIDE 0.9% 100 ML IV SCH (12:08)
[2020-10-26] MEDS: SULFAMETH/TRIMETH INJ 300 MG in DEXTROSE 5% 500 ML IV SCH ×2 (12:55→20:29)
[2020-10-26] MEDS: SODIUM CHLORIDE 0.9% 1,000 ML IV SCH (15:21)
[2020-10-26] MEDS: ZINC OXIDE PASTE 113 GM TUBE TOP SCH (20:30)
[2020-10-27] MEDS: INSULIN REGULAR 100 UNIT/ML SUBCUT SCH ×4 (00:23→18:10)
[2020-10-27] MEDS: ALBUTEROL INHALER 18 GM INH SCH ×4 (00:52→18:30)
[2020-10-27] MEDS: methylPREDNISolone SOD SUC 40 MG/1 ML VIAL IV SCH ×4 (02:33→20:15)
[2020-10-27 03:52] LABS: Basophils % 0.2 % (0.0-0.8); Hematocrit 28.2 VOL% (35.7-47.0); Hemoglobin 8.9 GM/DL (12.0-16.0); Immature Granulocytes % 3.6 %; Immature Granulocytes Absolute 0.86 #; Lymphocytes # 0.3 10*3/uL (1.4-4.0); Lymphocytes % 1.3 % (21.3-54.2); Mean Corpuscular HGB Conc 31.6 GM/DL (32-36); Mean Corpuscular Volume 98.6 FL (87-102); Mean Platelet Volume 12.3 FL (9.6-12.0); Monocytes % 3.9 % (1.7-12.7); NRBC # 0.06 10*3/uL; Platelet Count 144 T/CUMM (130-400); Red Blood Count 2.86 MC/CUMM (3.8-5.5); Red Cell Distribution Width 17.8 % (9.3-17.3); White Blood Count 24.2 T/CUMM (4-12)
[2020-10-27] MEDS: SULFAMETH/TRIMETH INJ 300 MG in DEXTROSE 5% 500 ML IV SCH ×3 (04:03→20:13)
[2020-10-27 04:10] LABS: Calcium 7.7 MG/DL (8.5-10.1); Osmolality,Calculated 280.4 MOS/KG (273-304); Potassium 4.7 MMOL/L (3.5-5.1)
[2020-10-27 04:18] LABS: Band Neutrophils 2 % (0-10); Hypochromasia Slight; Lymphocytes 3 % (20-55); Platelet Estimate Normal; Segmented Neutrophils 90 % (50-85); Total Cells Counted 100
[2020-10-27 04:42] LABS: Allen Test Positive; Pt O2 Delivery Device Ventilator
[2020-10-27 04:45] LABS: ABG Base Excess 1.9 MMOL/L (-2.5-2.5); ABG PCO2 48.9 MM HG (35-48); ABG PH 7.362 (7.35-7.45); ABG PO2 83.6 MM HG (80-95); ABG TCO2 25.7 MMOL/L (23-27)
[2020-10-27] MEDS: INSULIN GLARGINE 100 UNIT/ML SUBCUT SCH (09:12)
[2020-10-27] MEDS: FONDAPARINUX 2.5 MG/0.5 ML SYRINGE SUBCUT SCH (09:12)
[2020-10-27] MEDS: FAMOTIDINE 20 MG/2 ML VIAL IV SCH ×2 (09:12→20:16)
[2020-10-27] MEDS: MULTIVITAMIN LIQUID (CENTRUM) 60 ML BOTTLE PO SCH (09:13)
[2020-10-27] MEDS: ZINC OXIDE PASTE 113 GM TUBE TOP SCH ×2 (09:13→20:17)
[2020-10-27] MEDS: amLODIPine 10 MG TABLET PO SCH (09:13)
[2020-10-27] MEDS: METOCLOPRAMIDE 10 MG/10 ML UDCUP PO SCH ×2 (09:13→20:17)
[2020-10-27] MEDS: hydrALAZINE 20 MG/1 ML VIAL IV PRN (10:34)
[2020-10-27] MEDS: SODIUM CHLORIDE 0.9% 1,000 ML IV SCH (14:38)
[2020-10-27] MEDS: REMDESIVIR 100 MG in SODIUM CHLORIDE 0.9% 100 ML IV SCH (15:25)
[2020-10-27] MEDS ORDERED: FUROSEMIDE 40 MG/4 ML VIAL IV ONE (16:11)
[2020-10-28] MEDS: methylPREDNISolone SOD SUC 40 MG/1 ML VIAL IV SCH ×4 (02:20→21:01)
[2020-10-28] MEDS: INSULIN REGULAR 100 UNIT/ML SUBCUT SCH ×4 (02:21→18:33)
[2020-10-28] MEDS: ALBUTEROL INHALER 18 GM INH SCH ×4 (02:25→18:34)
[2020-10-28 03:12] LABS: ABG Base Excess -1.7 MMOL/L (-2.5-2.5); ABG HCO3 22.8 MMOL/L (20-26); ABG Oxygen Saturation 90.7 % (95-100); ABG PCO2 50.8 MM HG (35-48); ABG PH 7.301 (7.35-7.45); ABG PO2 66.2 MM HG (80-95); ABG TCO2 23.2 MMOL/L (23-27); Allen Test Positive; Pt O2 Delivery Device Ventilator
[2020-10-28] MEDS: SULFAMETH/TRIMETH INJ 300 MG in DEXTROSE 5% 500 ML IV SCH ×3 (04:40→21:04)
[2020-10-28 04:56] LABS: Basophils % 0.2 % (0.0-0.8); Hematocrit 25.9 VOL% (35.7-47.0); Hemoglobin 8.2 GM/DL (12.0-16.0); Immature Granulocytes % 2.1 %; Immature Granulocytes Absolute 0.51 #; Lymphocytes # 0.4 10*3/uL (1.4-4.0); Lymphocytes % 1.8 % (21.3-54.2); Mean Corpuscular HGB Conc 31.7 GM/DL (32-36); Mean Corpuscular Volume 99.2 FL (87-102); Mean Platelet Volume 12.6 FL (9.6-12.0); Monocytes % 5.9 % (1.7-12.7); NRBC # 0.05 10*3/uL; Platelet Count 158 T/CUMM (130-400); Red Blood Count 2.61 MC/CUMM (3.8-5.5); Red Cell Distribution Width 17.3 % (9.3-17.3); White Blood Count 23.9 T/CUMM (4-12)
[2020-10-28 05:14] LABS: Band Neutrophils 7 % (0-10); Lymphocytes 3 % (20-55); Segmented Neutrophils 82 % (50-85); Total Cells Counted 100
[2020-10-28 05:15] LABS: Calcium 7.4 MG/DL (8.5-10.1); Osmolality,Calculated 277.9 MOS/KG (273-304); Polychromasia Slight; Potassium 5.1 MMOL/L (3.5-5.1)
[2020-10-28 05:16] LABS: Hypochromasia Slight; Microcytosis 1+; Platelet Estimate Adequate
[2020-10-28 05:22] LABS: Calcium 7.6 MG/DL (8.5-10.1); Osmolality,Calculated 274.2 MOS/KG (273-304); Potassium 5.1 MMOL/L (3.5-5.1)
[2020-10-28] MEDS: FONDAPARINUX 2.5 MG/0.5 ML SYRINGE SUBCUT SCH ×2 (08:46→09:05)
[2020-10-28] MEDS: amLODIPine 10 MG TABLET PO SCH (08:47)
[2020-10-28] MEDS: METOCLOPRAMIDE 10 MG/10 ML UDCUP PO SCH ×2 (08:47→20:55)
[2020-10-28] MEDS: FAMOTIDINE 20 MG/2 ML VIAL IV SCH (08:47)
[2020-10-28] MEDS: MULTIVITAMIN LIQUID (CENTRUM) 60 ML BOTTLE PO SCH (08:48)
[2020-10-28] MEDS: ZINC OXIDE PASTE 113 GM TUBE TOP SCH ×2 (08:48→20:55)
[2020-10-28] MEDS: INSULIN GLARGINE 100 UNIT/ML SUBCUT SCH (08:54)
[2020-10-28 13:42] LABS: ABG Base Excess -1.6 MMOL/L (-2.5-2.5); ABG Oxygen Saturation 91.5 % (95-100); ABG PCO2 39.8 MM HG (35-48); ABG PH 7.377 (7.35-7.45); ABG PO2 64.7 MM HG (80-95); ABG TCO2 22.1 MMOL/L (23-27)
[2020-10-28] MEDS ORDERED: MIDAZOLAM 2 MG/2 ML VIAL IV ONE (13:46)
[2020-10-28] MEDS ORDERED: MIDAZOLAM 2 MG/2 ML VIAL ONE (13:47)
[2020-10-28 13:52] LABS: Hematocrit 20.3 VOL% (35.7-47.0); Hemoglobin 6.8 GM/DL (12.0-16.0)
[2020-10-28] MEDS ORDERED: SODIUM CHLORIDE 0.9% 1,000 ML IV PRN (14:00)
[2020-10-28 14:09] LABS: Alanine Aminotransferase 35 U/L (13-56); Albumin 1.6 G/DL (3.4-5.0); Alkaline Phosphatase 77 U/L (45-117); Aspartate Amino Transferase 15 U/L (0-37); Bilirubin,Total < 0.39 MG/DL (0.2-1.0); Blood Urea Nitrogen 63 MG/DL (7-18); Calcium 7.2 MG/DL (8.5-10.1); Carbon Dioxide 24 MMOL/L (21-32); Estimated Glom Filtration Rate 71 ML/MIN; Glucose 181 MG/DL (74-106); Osmolality,Calculated 271.6 MOS/KG (273-304); Potassium 5.1 MMOL/L (3.5-5.1); Sodium 124 MMOL/L (136-145); Total Protein 4.1 G/DL (6.4-8.2)
[2020-10-28] MEDS: SODIUM CHLORIDE 0.9% 1,000 ML IV SCH (14:20)
[2020-10-28] MEDS ORDERED: FUROSEMIDE 40 MG/4 ML VIAL IV ONE ×2 (15:00→16:32)
[2020-10-28] MEDS: REMDESIVIR 100 MG in SODIUM CHLORIDE 0.9% 100 ML IV SCH (18:34)
[2020-10-28] MEDS: MIDAZOLAM 100 MG in SODIUM CHLORIDE 0.9% 80 ML IV PRN (19:00)
[2020-10-28] MEDS: NOREPINEPHRINE 16 MG in SODIUM CHLORIDE 0.9% 234 ML IV PRN (19:09)
[2020-10-28] MEDS: SUCRALFATE 1 GM/10 ML UDCUP NG SCH (19:24)
[2020-10-28] MEDS: PANTOPRAZOLE 40 MG VIAL IV SCH (20:58)
[2020-10-28 21:35] LABS: Basophils # 0.1 10*3/uL (0.0-0.2); Basophils % 0.4 % (0.0-0.8); Eosinophils % 0.2 % (0.00-10.9); Hematocrit 33.5 VOL% (35.7-47.0); Immature Granulocytes % 2.9 %; Immature Granulocytes Absolute 0.67 #; Lymphocytes # 0.6 10*3/uL (1.4-4.0); Lymphocytes % 2.5 % (21.3-54.2); Mean Corpuscular HGB Conc 33.4 GM/DL (32-36); Mean Corpuscular Volume 88.6 FL (87-102); Mean Platelet Volume 12.4 FL (9.6-12.0); Monocytes % 4.5 % (1.7-12.7); NRBC # 0.08 10*3/uL; Neutrophils % 89.5 % (38.7-73.9); Platelet Count 152 T/CUMM (130-400); Red Blood Count 3.78 MC/CUMM (3.8-5.5); Red Cell Distribution Width 18.8 % (9.3-17.3); White Blood Count 22.7 T/CUMM (4-12)
[2020-10-28 21:37] LABS: Hemoglobin 11.2 GM/DL (12.0-16.0)
[2020-10-28 22:29] LABS: Band Neutrophils 17 % (0-10); Lymphocytes 5 % (20-55); Metamyelocytes 2 %; Platelet Estimate Normal; Segmented Neutrophils 75 % (50-85); Total Cells Counted 100
[2020-10-29] MEDS: INSULIN REGULAR 100 UNIT/ML SUBCUT SCH ×6 (01:50→23:54)
[2020-10-29] MEDS: SUCRALFATE 1 GM/10 ML UDCUP NG SCH ×5 (01:50→23:55)
[2020-10-29] MEDS: ALBUTEROL INHALER 18 GM INH SCH ×4 (02:19→18:20)
[2020-10-29 02:39] VITALS: BP 133/71
[2020-10-29 03:15] LABS: ABG Base Excess -4.8 MMOL/L (-2.5-2.5); ABG HCO3 22.2 MMOL/L (20-26); ABG Oxygen Saturation 97.4 % (95-100); ABG PCO2 49.5 MM HG (35-48); ABG PO2 106.2 MM HG (80-95); ABG TCO2 23.7 MMOL/L (23-27); Allen Test Positive; Pt O2 Delivery Device Ventilator
[2020-10-29] MEDS: SULFAMETH/TRIMETH INJ 300 MG in DEXTROSE 5% 500 ML IV SCH ×3 (05:10→20:55)
[2020-10-29] MEDS: methylPREDNISolone SOD SUC 40 MG/1 ML VIAL IV SCH ×3 (05:20→20:56)
[2020-10-29 05:49] LABS: Basophils # 0.1 10*3/uL (0.0-0.2); Basophils % 0.4 % (0.0-0.8); Eosinophils % 0.2 % (0.00-10.9); Hematocrit 33.7 VOL% (35.7-47.0); Hemoglobin 11.2 GM/DL (12.0-16.0); Immature Granulocytes % 2.4 %; Immature Granulocytes Absolute 0.55 #; Lymphocytes # 0.6 10*3/uL (1.4-4.0); Lymphocytes % 2.5 % (21.3-54.2); Mean Corpuscular HGB Conc 33.2 GM/DL (32-36); Mean Corpuscular Volume 89.4 FL (87-102); Mean Platelet Volume 12.2 FL (9.6-12.0); Monocytes % 5.6 % (1.7-12.7); NRBC # 0.13 10*3/uL; Neutrophils % 88.9 % (38.7-73.9); Platelet Count 182 T/CUMM (130-400); Red Blood Count 3.77 MC/CUMM (3.8-5.5); Red Cell Distribution Width 20.1 % (9.3-17.3); White Blood Count 22.7 T/CUMM (4-12)
[2020-10-29 06:23] LABS: Calcium 7.4 MG/DL (8.5-10.1); Osmolality,Calculated 278.5 MOS/KG (273-304); Potassium 5.9 MMOL/L (3.5-5.1)
[2020-10-29 06:27] LABS: Band Neutrophils 11 % (0-10); Lymphocytes 5 % (20-55); Segmented Neutrophils 82 % (50-85); Total Cells Counted 100
[2020-10-29 06:28] LABS: Microcytosis 1+; Platelet Estimate Adequate; Polychromasia Slight
[2020-10-29] MEDS: PANTOPRAZOLE 40 MG VIAL IV SCH ×2 (08:22→20:55)
[2020-10-29] MEDS: INSULIN GLARGINE 100 UNIT/ML SUBCUT SCH (08:22)
[2020-10-29] MEDS: METOCLOPRAMIDE 10 MG/10 ML UDCUP PO SCH ×2 (08:23→21:01)
[2020-10-29] MEDS: ZINC OXIDE PASTE 113 GM TUBE TOP SCH ×2 (08:23→20:56)
[2020-10-29 09:00] LABS: Calcium 7.1 MG/DL (8.5-10.1); Osmolality,Calculated 281.6 MOS/KG (273-304); Potassium 5.8 MMOL/L (3.5-5.1)
[2020-10-29 09:18] LABS: ABG Base Excess -6.1 MMOL/L (-2.5-2.5); ABG HCO3 19.4 MMOL/L (20-26); ABG PCO2 50.1 MM HG (35-48); ABG PH 7.241 (7.35-7.45); ABG TCO2 19.9 MMOL/L (23-27); Allen Test Positive; Pt O2 Delivery Device Ventilator
[2020-10-29] MEDS: SODIUM CHLORIDE 0.9% 1,000 ML IV SCH ×2 (09:20→23:55)
[2020-10-29] MEDS ORDERED: SODIUM POLYSTYRENE SULFATE 15 GM/60 ML BOTTLE PO ONE ×2 (09:30→16:40)
[2020-10-29] MEDS: MULTIVITAMIN LIQUID (CENTRUM) 60 ML BOTTLE PO SCH (10:30)
[2020-10-29] MEDS ORDERED: SODIUM CHLORIDE 0.9% 500 ML IV ONE (11:00)
[2020-10-29] MEDS ORDERED: SODIUM CHLORIDE 0.9% 1,000 ML IV SCH (11:00)
[2020-10-29] MEDS: NOREPINEPHRINE 16 MG in SODIUM CHLORIDE 0.9% 234 ML IV PRN (13:30)
[2020-10-29 14:39] LABS: Calcium 6.9 MG/DL (8.5-10.1); Osmolality,Calculated 286.1 MOS/KG (273-304); Potassium 5.3 MMOL/L (3.5-5.1)
[2020-10-29] MEDS: REMDESIVIR 100 MG in SODIUM CHLORIDE 0.9% 100 ML IV SCH (18:29)
[2020-10-29 20:19] LABS: ABG Base Excess -6.3 MMOL/L (-2.5-2.5); ABG HCO3 19.2 MMOL/L (20-26); ABG Oxygen Saturation 97.8 % (95-100); ABG PCO2 46.5 MM HG (35-48); ABG PH 7.257 (7.35-7.45); ABG TCO2 19.3 MMOL/L (23-27); Glucose Heart Surgery 174 MG/DL (74-106); Hemoglobin Heart Surgery 9.4 G/DL (12.0-16.0); Potassium Heart/CVR 4.5 MMOL/L (3.5-5.1)
[2020-10-30] MEDS: ALBUTEROL INHALER 18 GM INH SCH ×4 (00:08→18:44)
[2020-10-30 04:22] LABS: Basophils % 0.1 % (0.0-0.8); Hematocrit 26.3 VOL% (35.7-47.0); Hemoglobin 8.4 GM/DL (12.0-16.0); Immature Granulocytes % 2.8 %; Immature Granulocytes Absolute 0.63 #; Lymphocytes # 0.5 10*3/uL (1.4-4.0); Lymphocytes % 2.1 % (21.3-54.2); Mean Corpuscular HGB Conc 31.9 GM/DL (32-36); Mean Corpuscular Volume 92.3 FL (87-102); Monocytes % 7.8 % (1.7-12.7); NRBC # 0.12 10*3/uL; Neutrophils % 87.2 % (38.7-73.9); Platelet Count 163 T/CUMM (130-400); Red Blood Count 2.85 MC/CUMM (3.8-5.5); Red Cell Distribution Width 19.3 % (9.3-17.3); White Blood Count 22.6 T/CUMM (4-12)
[2020-10-30] MEDS: INSULIN REGULAR 100 UNIT/ML SUBCUT SCH ×5 (04:26→21:04)
[2020-10-30 04:33] LABS: Calcium 6.8 MG/DL (8.5-10.1); Osmolality,Calculated 279.4 MOS/KG (273-304); Potassium 4.1 MMOL/L (3.5-5.1)
[2020-10-30 04:35] LABS: Alanine Aminotransferase 36 U/L (13-56); Albumin 1.5 G/DL (3.4-5.0); Alkaline Phosphatase 83 U/L (45-117); Aspartate Amino Transferase 19 U/L (0-37); Bilirubin,Total < 0.39 MG/DL (0.2-1.0); Blood Urea Nitrogen 79 MG/DL (7-18); Carbon Dioxide 23 MMOL/L (21-32); Estimated Glom Filtration Rate 52 ML/MIN; Glucose 138 MG/DL (74-106); Osmolality,Calculated 278.4 MOS/KG (273-304); Potassium 4.1 MMOL/L (3.5-5.1); Sodium 126 MMOL/L (136-145); Total Protein 4.5 G/DL (6.4-8.2)
[2020-10-30 04:38] LABS: INR 1.1; PT Patient Result 11.9 SECS (10.5-12.0); Partial Thromboplastin Time 41.6 SECS (23.9-33.8)
[2020-10-30] MEDS: methylPREDNISolone SOD SUC 40 MG/1 ML VIAL IV SCH ×3 (04:47→21:03)
[2020-10-30] MEDS: SODIUM CHLORIDE 0.9% 1,000 ML IV SCH ×2 (04:48→13:07)
[2020-10-30 04:49] LABS: ABG Base Excess -6.1 MMOL/L (-2.5-2.5); ABG HCO3 19.3 MMOL/L (20-26); ABG Oxygen Saturation 97.5 % (95-100); ABG PCO2 52.7 MM HG (35-48); ABG PH 7.223 (7.35-7.45); ABG TCO2 20.4 MMOL/L (23-27); Allen Test Positive; Pt O2 Delivery Device Ventilator
[2020-10-30] MEDS: SULFAMETH/TRIMETH INJ 300 MG in DEXTROSE 5% 500 ML IV SCH ×3 (04:53→20:58)
[2020-10-30 05:08] LABS: Platelet Estimate Normal
[2020-10-30 05:09] LABS: Anisocytosis 2+; Burr Cells Few; Poikilocytosis 1+
[2020-10-30 05:11] LABS: Pappenheimer Bodies Few
[2020-10-30] MEDS: SUCRALFATE 1 GM/10 ML UDCUP NG SCH ×3 (05:42→18:26)
[2020-10-30 07:43] LABS: Band Neutrophils 36 % (0-10); Lymphocytes 3 % (20-55); Metamyelocytes 3 %; Segmented Neutrophils 53 % (50-85); Total Cells Counted 100
[2020-10-30 07:44] LABS: Smudge Cells Few
[2020-10-30] MEDS: METOCLOPRAMIDE 10 MG/10 ML UDCUP PO SCH ×2 (08:19→21:04)
[2020-10-30] MEDS: PANTOPRAZOLE 40 MG VIAL IV SCH ×2 (08:20→21:03)
[2020-10-30] MEDS: MULTIVITAMIN LIQUID (CENTRUM) 60 ML BOTTLE PO SCH (08:21)
[2020-10-30] MEDS: ZINC OXIDE PASTE 113 GM TUBE TOP SCH ×2 (08:21→21:04)
[2020-10-30] MEDS ORDERED: INSULIN GLARGINE 100 UNIT/ML SUBCUT SCH (09:00)
[2020-10-30 09:19] LABS: ABG Base Excess -5.6 MMOL/L (-2.5-2.5); ABG HCO3 19.8 MMOL/L (20-26); ABG Oxygen Saturation 95.7 % (95-100); ABG PCO2 46.6 MM HG (35-48); ABG PH 7.267 (7.35-7.45); ABG PO2 83.3 MM HG (80-95); Allen Test Positive; Pt O2 Delivery Device Ventilator
[2020-10-30] MEDS: METOCLOPRAMIDE 10 MG/2 ML VIAL IV SCH ×2 (13:07→18:26)
[2020-10-30 22:17] LABS: ABG Base Excess -9.7 MMOL/L (-2.5-2.5); ABG HCO3 16.4 MMOL/L (20-26); ABG Oxygen Saturation 82.3 % (95-100); ABG PCO2 50.7 MM HG (35-48); ABG PO2 57.6 MM HG (80-95); ABG TCO2 17.9 MMOL/L (23-27); Allen Test Positive; Pt O2 Delivery Device Ventilator
[2020-10-30 22:21] LABS: ABG PH 7.172 (7.35-7.45)
[2020-10-30] MEDS: MIDAZOLAM 100 MG in SODIUM CHLORIDE 0.9% 80 ML IV PRN (23:10)
[2020-10-30 23:58] LABS: ABG Base Excess -8.2 MMOL/L (-2.5-2.5); ABG HCO3 17.7 MMOL/L (20-26); ABG Oxygen Saturation 91.9 % (95-100); ABG PCO2 44.3 MM HG (35-48); ABG PH 7.237 (7.35-7.45); ABG PO2 72.2 MM HG (80-95); ABG TCO2 17.9 MMOL/L (23-27)
[2020-10-31] MEDS: SODIUM CHLORIDE 0.9% 1,000 ML IV SCH ×2 (00:14→01:21)
[2020-10-31] MEDS: INSULIN REGULAR 100 UNIT/ML SUBCUT SCH ×2 (00:28→04:26)
[2020-10-31] MEDS: METOCLOPRAMIDE 10 MG/2 ML VIAL IV SCH ×2 (00:29→05:04)
[2020-10-31] MEDS: SUCRALFATE 1 GM/10 ML UDCUP NG SCH ×2 (00:30→05:06)
[2020-10-31] MEDS: ALBUTEROL INHALER 18 GM INH SCH ×2 (00:31→07:12)
[2020-10-31] MEDS: SULFAMETH/TRIMETH INJ 300 MG in DEXTROSE 5% 500 ML IV SCH (03:55)
[2020-10-31 04:36] LABS: Allen Test Positive; Pt O2 Delivery Device Ventilator
[2020-10-31 04:37] LABS: ABG Base Excess -8.1 MMOL/L (-2.5-2.5); ABG HCO3 17.7 MMOL/L (20-26); ABG Oxygen Saturation 87.5 % (95-100); ABG PH 7.226 (7.35-7.45); ABG PO2 61.6 MM HG (80-95); ABG TCO2 18.3 MMOL/L (23-27)
[2020-10-31 05:14] LABS: Basophils # 0.1 10*3/uL (0.0-0.2); Basophils % 0.2 % (0.0-0.8); Hematocrit 23.1 VOL% (35.7-47.0); Hemoglobin 7.4 GM/DL (12.0-16.0); Immature Granulocytes % 4.1 %; Immature Granulocytes Absolute 1.13 #; Lymphocytes # 0.7 10*3/uL (1.4-4.0); Lymphocytes % 2.5 % (21.3-54.2); Mean Corpuscular Volume 91.7 FL (87-102); Mean Platelet Volume 12.7 FL (9.6-12.0); NRBC # 0.13 10*3/uL; Neutrophils % 85.2 % (38.7-73.9); Platelet Count 171 T/CUMM (130-400); Red Blood Count 2.52 MC/CUMM (3.8-5.5); White Blood Count 27.9 T/CUMM (4-12)
[2020-10-31 05:46] LABS: Calcium 6.8 MG/DL (8.5-10.1); Osmolality,Calculated 277.9 MOS/KG (273-304); Potassium 4.2 MMOL/L (3.5-5.1)
[2020-10-31 05:53] LABS: Anisocytosis 2+; Band Neutrophils 29 % (0-10); Basophilic Stippling Slight; Burr Cells Few; Lymphocytes 1 % (20-55); Metamyelocytes 1 %; Myelocytes 2 %; Nucleated Red Blood Cells 2 (0-5); Platelet Estimate Normal; Segmented Neutrophils 61 % (50-85); Total Cells Counted 100
[2020-10-31 05:54] LABS: Macrocytosis Slight
[2020-10-31] MEDS: NOREPINEPHRINE 16 MG in SODIUM CHLORIDE 0.9% 234 ML IV PRN (06:20)
[2020-10-31] MEDS ORDERED: CALCIUM CHLORIDE 1,000 MG/10 ML SYRINGE IV ONE (06:49)
[2020-10-31] MEDS ORDERED: SODIUM BICARBONATE 50 MEQ/50 ML SYRINGE IV ONE (06:49)
[2020-10-31] MEDS ORDERED: EPINEPHrine 1 MG/10 ML SYRINGE ONE ×2 (06:49→07:05)
[2020-10-31] MEDS: methylPREDNISolone SOD SUC 40 MG/1 ML VIAL IV SCH (07:12)
== END 2020-10-31 07:31 | disposition expired | DRG 207 ==
LOC: N.ED 22:46 → SUATTDRO 09-27 00:12 → N.EDINP 09-27 00:12 → N.CC 09-27 00:37 → N.TELEN 10-11 13:03 → N.CC 10-16 03:42
PROVIDERS: ADMIT Internal Medicine; ATTEND Internal Medicine